=== PATIENT | female | born 2000 | race Caucasian/White ===

== ENCOUNTER 2021-07-07 23:39 | Emergency (ER) | payer OTHER ==
[2021-07-07 23:56] VITALS: O2SAT 98
[2021-07-08] MEDS ORDERED: Sodium Chloride 0.9% 1000 ML 1,000 ML IV STA (00:04)
[2021-07-08] MEDS ORDERED: Zofran 4 MG/2 ML VIAL IV ONE (00:04)
[2021-07-08] MEDS ORDERED: Zofran 4 MG/2 ML VIAL ONE (00:08)
[2021-07-08] MEDS ORDERED: Sodium Chloride 0.9% 1000 ML 1,000 ML ONE (00:08)
[2021-07-08 00:15] LABS: Absolute Neutrophil Ct (ANC) 4.55 (1.4-6.9); Basophil (Absolute #) 0.02 (0-0.4); Eosinophil % 1.2 % (0.00-5.0); Eosinophil (Absolute #) 0.08 (0-0.5); Hematocrit 35.4 % (35-47); Hemoglobin 11.3 gm/dl (12.0-16.0); Lymphocyte (Absolute #) 1.53 (1.0-4.6); Lymphocytes % 22.6 % (24.0-44.0); Mean Cell Volume 82.1 fl (78-100); Mean Corpuscular Hemoglobin 26.2 pg (26-32); Mean Corpuscular Hgb Concent. 31.9 g/dl (32-36); Mean Platelet Volume 9.6 fl (7.5-11.0); Monocytes % 8.8 % (0.0-12.0); Neutrophil % 67.1 % (36.0-66.0); Platelet Count 266 K/mm3 (150-450); Red Blood Count 4.31 M/mm3 (4.1-5.4); Red Cell Distribution Width 14.9 % (11.5-14.0); White Blood Count 6.8 K/mm3 (4.0-10.5)
[2021-07-08 00:29] LABS: ALBUMIN 4.2 g/dL (3.5-5.0); ALKALINE PHOSPHATASE 84 U/L (38-126); ANION GAP 11.9 MEQ/L (5-15); BLOOD UREA NITROGEN 9 mg/dL (7-17); CHLORIDE 106 mmol/L (98-107); Calcium 9.2 mg/dL (8.4-10.2); Carbon Dioxide 23 mmol/L (22-30); Creatinine 1 0.52 mg/dL (0.52-1.04); EST GLOMERULAR FILTRATION RATE > 60.0 ML/MIN; Glucose 95 mg/dL (74-106); Potassium 3.6 mmol/L (3.5-5.1); SGOT/AST 22 U/L (14-36); SGPT/ALT 19 U/L (0-35); SODIUM 138 mmol/L (137-145); Total Protein 7.3 g/dL (6.3-8.2)
--- NOTE | 2021-07-08 00:34 | ERPHSYRPT ---
- History of Present Illness Historian: patient Exam Limitations: no limitations Patient Subjective Stated Complaint: pt states she vomited once tonight and states it looked like she vomited up a blood clot. denies pain Triage Nursing Assessment: pt alert and oriented, answers questions approp. pt ambulatory with steady gait noted. respirations nonlabored with lungs cta. abd soft and nontender with light palpation. bowel sounds present x4. Physician History: 21 yo wf w +preg test 07/05/21 presents w N/V before arrival w a few blood clots. She denies abdominal pain/vag bleeding/vag dc/dysuria/hematuria/melena/hematochezia. Timing/Duration: today (Before arrival) Activities at Onset: rest Abdominal Pain Onset Location: other (No pain) Pain Radiation: no radiation Severity of Pain-Max: none Severity of Pain-Current: none Modifying Factors: Improves With: vomiting. Worsens With: analgesics, antacids, breathing, coughing, defecating, eating, exercise, lying down, movement, palpation, rest, urinating, position, walking Associated Symptoms: nausea, vomiting, No back, No chest pain, No diaphoresis, No diarrhea, No fever/chills, No fatigue, No headache, No heartburn, No loss of appetite, No neck pain, No rash, No shortness of breath, No syncope, No weakness Previous symptoms: no prior history Allergies/Adverse Reactions: No Known Drug Allergies Allergy (Verified 07/07/21 23:57) Hx Tetanus, Diphtheria Vaccination/Date Given: Yes Hx Influenza Vaccination/Date Given: No Hx Pneumococcal Vaccination/Date Given: No Immunizations Up to Date: Yes Travel Risk - International Travel Have you traveled outside of the country in past 3 weeks: No - Coronavirus Screening Are you exhibiting any of the following symptoms?: No Close contact with a COVID-19 positive Pt in past 14-21 Days: No - Vaccine Status Have you recieved a Covid-19 vaccination: No - Review of Systems Constitutional: No Symptoms Eyes: No Symptoms Ears, Nose, & Throat: No Symptoms Respiratory: No Symptoms Cardiac: No Symptoms Abdominal/Gastrointestinal: No Symptoms, Hematemesis Genitourinary Symptoms: No Symptoms Musculoskeletal: No Symptoms Skin: No Symptoms Neurological: No Symptoms Psychological: No Symptoms Endocrine: No Symptoms Hematologic/Lymphatic: No Symptoms Immunological/Allergic: No Symptoms - Past Medical History Other Medical History: hx of frequent kidney infections - Past Surgical History Past Surgical History: Yes Gastrointestinal: Appendectomy Musculoskeletal: Orthopedic Surgery Other Surgical History: lt wrist with hardware - Social History Smoking Status: Never smoker Exposure to second hand smoke: Yes Drug Use: none Patient Lives Alone: No Significant Family History: no pertinent family hx - Female History Hx Last Menstrual Period: 06/03/21 Hx Now: Yes Expected Date of Delivery: 03/10/22 Gestational Age: 5 weeks - Nursing Vital Signs Nursing Vital Signs: Initial Vital Signs Temperature 98.9 F 07/07/21 23:46 Pulse Rate 108 H 07/07/21 23:46 Respiratory Rate 16 07/07/21 23:46 Blood Pressure 126/87 07/07/21 23:46 O2 Sat by Pulse Oximetry 98 07/07/21 23:46 Pain Scale Pain Intensity 0 Mildly tachy - Physical Exam General Appearance: no apparent distress Eye Exam: PERRL/EOMI, eyes nml inspection Ears, Nose, Throat Exam: normal ENT inspection, TMs normal, pharynx normal, moist mucous membranes Neck Exam: normal inspection, non-tender, supple, full range of motion, No meningismus, No mass, No Brudzinski, No Kernig's Respiratory Exam: normal breath sounds, lungs clear, airway intact, No respiratory distress Cardiovascular Exam: tachycardia (Mild), capillary refill <2 sec, No murmur Gastrointestinal/Abdomen Exam: soft, normal bowel sounds, No tenderness Back Exam: normal inspection, normal range of motion, No CVA tenderness, No vertebral tenderness Extremity Exam: normal inspection, normal range of motion Neurologic Exam: alert, oriented x 3, cooperative, instructional systems design consultant II-XII nml as tested, normal mood/affect, nml cerebellar function, nml station & gait, sensation nml, No motor deficits, No sensory deficit Skin Exam: normal color, warm, dry Lymphatic Exam: No adenopathy SpO2 Interpretation: normal SpO2: 98 O2 Delivery: Room Air Ordered Tests: Medication Summary Discontinued Medications Generic Name Dose Route Start Last Admin Trade Name Freq PRN Reason Stop Dose Admin Sodium Chloride 1,000 mls @ 999 mls/hr 07/08/21 00:04 07/08/21 01:28 Sodium Chloride 0.9% 1000 Ml IV 07/08/21 01:04 Infused .Q1H1M STA Infusion Sodium Chloride Confirm 07/08/21 00:08 Sodium Chloride 0.9% 1000 Ml Administered 07/08/21 00:09 Dose 1,000 mls @ ud .ROUTE .K-MED ONE Ondansetron HCl 4 mg 07/08/21 00:04 07/08/21 00:09 Ondansetron Hcl 4 Mg/2 Ml Vial IV 07/08/21 00:05 4 mg STAT ONE Administration Ondansetron HCl Confirm 07/08/21 00:08 Ondansetron Hcl 4 Mg/2 Ml Vial Administered 07/08/21 00:09 Dose 4 mg .ROUTE .STK-MED ONE Lab/Rad Data: Laboratory Result Diagrams 07/08/21 00:12 07/08/21 00:12 Laboratory Results 07/08/21 07/08/21 07/08/21 Range/Units 00:44 00:14 00:12 WBC (4.0-10.5) K/mm3 RBC (4.1-5.4) M/mm3 Hgb (12.0-16.0) gm/dl Hct (35-47) % MCV (78-100) fl MCH (26-32) pg MCHC (32-36) g/dl RDW (11.5-14.0) % Plt Count (150-450) K/mm3 MPV (7.5-11.0) fl Gran % (36.0-66.0) % Eos # (Auto) (0-0.5) Absolute Lymphs (auto) (1.0-4.6) Absolute Monos (auto) (0.0-1.3) Lymphocytes % (24.0-44.0) % Monocytes % (0.0-12.0) % Eosinophils % (0.00-5.0) % Basophils % (0.0-0.4) % Absolute Granulocytes (1.4-6.9) Basophils # (0-0.4) Sodium 138 (137-145) mmol/L Potassium 3.6 (3.5-5.1) mmol/L Chloride 106 (98-107) mmol/L Carbon Dioxide 23 (22-30) mmol/L Anion Gap 11.9 (5-15) MEQ/L BUN 9 (7-17) mg/dL Creatinine 0.52 (0.52-1.04) mg/dL Estimated GFR > 60.0 ML/MIN Glucose 95 (74-106) mg/dL Calcium 9.2 (8.4-10.2) mg/dL Total Bilirubin 0.40 (0.2-1.3) mg/dL AST 22 (14-36) U/L ALT 19 (0-35) U/L Alkaline Phosphatase 84 (38-126) U/L Serum Total Protein 7.3 (6.3-8.2) g/dL Albumin 4.2 (3.5-5.0) g/dL Beta HCG, Quant 1285.3 mIU/ml Urine Color YELLOW (YELLOW) Urine Appearance CLEAR (CLEAR) Urine pH 7.0 (5-6) Ur Specific [place] 1.011 (1.005-1.025) Urine Protein NEGATIVE (Negative) Urine Ketones NEGATIVE (NEGATIVE) Urine Blood NEGATIVE (0-5) Farhan/ul Urine Nitrite NEGATIVE (NEGATIVE) Urine Bilirubin NEGATIVE (NEGATIVE) Urine Urobilinogen NEGATIVE (0-1) mg/dL Ur Leukocyte Esterase NEGATIVE (NEGATIVE) Urine WBC (Auto) 0-2 (0-5) /HPF Urine RBC (Auto) 0-2 (0-2) /HPF U Epithel Cells (Auto) RARE (FEW) /HPF Urine Bacteria (Auto) NONE (NEGATIVE) /HPF Urine Mucus (Auto) SLIGHT (NEGATIVE) /HPF Urine Culture Reflexed NO (NO) Urine Glucose NEGATIVE (NEGATIVE) mg/dL 07/08/21 Range/Units 00:12 WBC 6.8 (4.0-10.5) K/mm3 RBC 4.31 (4.1-5.4) M/mm3 Hgb 11.3 L (12.0-16.0) gm/dl Hct 35.4 (35-47) % MCV 82.1 (78-100) fl MCH 26.2 (26-32) pg MCHC 31.9 L (32-36) g/dl RDW 14.9 H (11.5-14.0) % Plt Count 266 (150-450) K/mm3 MPV 9.6 (7.5-11.0) fl Gran % 67.1 H (36.0-66.0) % Eos # (Auto) 0.08 (0-0.5) Absolute Lymphs (auto) 1.53 (1.0-4.6) Absolute Monos (auto) 0.60 (0.0-1.3) Lymphocytes % 22.6 L (24.0-44.0) % Monocytes % 8.8 (0.0-12.0) % Eosinophils % 1.2 (0.00-5.0) % Basophils % 0.3 (0.0-0.4) % Absolute Granulocytes 4.55 (1.4-6.9) Basophils # 0.02 (0-0.4) Sodium (137-145) mmol/L Potassium (3.5-5.1) mmol/L Chloride (98-107) mmol/L Carbon Dioxide (22-30) mmol/L Anion Gap (5-15) MEQ/L BUN (7-17) mg/dL Creatinine (0.52-1.04) mg/dL Estimated GFR ML/MIN Glucose (74-106) mg/dL Calcium (8.4-10.2) mg/dL Total Bilirubin (0.2-1.3) mg/dL AST (14-36) U/L ALT (0-35) U/L Alkaline Phosphatase (38-126) U/L Serum Total Protein (6.3-8.2) g/dL Albumin (3.5-5.0) g/dL Beta HCG, Quant mIU/ml Urine Color (YELLOW) Urine Appearance (CLEAR) Urine pH (5-6) Ur Specific [place] (1.005-1.025) Urine Protein (Negative) Urine Ketones (NEGATIVE) Urine Blood (0-5) Farhan/ul Urine Nitrite (NEGATIVE) Urine Bilirubin (NEGATIVE) Urine Urobilinogen (0-1) mg/dL Ur Leukocyte Esterase (NEGATIVE) Urine WBC (Auto) (0-5) /HPF Urine RBC (Auto) (0-2) /HPF U Epithel Cells (Auto) (FEW) /HPF Urine Bacteria (Auto) (NEGATIVE) /HPF Urine Mucus (Auto) (NEGATIVE) /HPF Urine Culture Reflexed (NO) Urine Glucose (NEGATIVE) mg/dL - Progress Progress: improved Progress Note: 07/08/21 00:38 1L NS bolus/4mg IV Zofran 07/08/21 01:15 Pt did not vomit during ER stay Counseled pt/family regarding: lab results, diagnosis, need for follow-up - Departure Departure Disposition: Home Clinical Impression: Nausea/vomiting in Condition: Stable Critical Care Time: No Referrals: DOCTOR,NO FAMILY [Primary Care Provider] - Follow up/PCP as directed Instructions: Nausea and Vomiting of (DC) Additional Instructions: Phenergan for nausea/vomiting Fluids Follow up with Dr. Choudhury Return to ER for unremitting vomiting/Vag bleeding/Increasing abdominal pain/Temperature greater than 100.5 Prescriptions: Promethazine HCl 25 mg [Phenergan 25 mg] 25 mg PO Q4-6HPRN PRN #10 tablet PRN Reason: Nausea/Vomiting
[2021-07-08 00:37] LABS: Appearance CLEAR (CLEAR); Bilirubin NEGATIVE (NEGATIVE); Blood NEGATIVE Ery/ul (0-5); Epithelial Cells RARE /HPF (FEW); Glucose NEGATIVE (NEGATIVE); Ketones NEGATIVE (NEGATIVE); Leukocyte Esterase NEGATIVE (NEGATIVE); Mucus SLIGHT /HPF (NEGATIVE); Nitrite NEGATIVE (NEGATIVE); Protein,Urine Dip NEGATIVE (Negative); RBC 0-2 /HPF (0-2); Specific Gravity 1.011 (1.005-1.025); Urobilinogen NEGATIVE mg/dL (0-1); WBC 0-2 /HPF (0-5)
[2021-07-08 01:15] VITALS: BP 112/67; PULSE 95
== END 2021-07-08 01:27 | disposition home or self-care (01) ==
LOC: ED 23:39
DX: O21.9 Vomiting of pregnancy, unspecified (principal); Z3A.01 Less than 8 weeks gestation of pregnancy
CPT/HCPCS: 36000; 36415; 80053; 81001; 84702; 85025; 96360; 96374; 99284; J2405

== ENCOUNTER 2021-09-02 13:10 | Emergency (ER) | payer OTHER ==
--- NOTE | 2021-09-02 14:58 | XRAY ---
Indication: Bleeding. Less than 14 weeks gestation. Two-dimensional transvaginal early OB ultrasound performed. Comparison: None There is a single intrauterine with mean crown-rump length measures 6.46 [place] corresponding to 12 weeks 6 days. heart rate 171 bpm. No abnormal subchorionic fluid. Left and right ovaries are sonographically unremarkable. No suspicious adnexal mass. Impression: Single viable intrauterine measuring 12 weeks 6 days. Expected date of confinement is March 11, 2022. No acute findings.
[2021-09-02 15:25] LABS: Basophil (Absolute #) 0 (0-0.4); Eosinophil % 0.8 % (0.00-5.0); Eosinophil (Absolute #) 0.05 (0-0.5); Hemoglobin 11.5 gm/dl (12.0-16.0); Lymphocyte (Absolute #) 1.29 (1.0-4.6); Lymphocytes % 19.4 % (24.0-44.0); Mean Corpuscular Hemoglobin 26.9 pg (26-32); Mean Corpuscular Hgb Concent. 32.9 g/dl (32-36); Neutrophil % 73.8 % (36.0-66.0); Platelet Count 216 K/mm3 (150-450); Red Blood Count 4.27 M/mm3 (4.1-5.4); Red Cell Distribution Width 15.6 % (11.5-14.0); White Blood Count 6.6 K/mm3 (4.0-10.5)
[2021-09-02 15:34] LABS: ALBUMIN 3.7 g/dL (3.5-5.0); ALKALINE PHOSPHATASE 64 U/L (38-126); ANION GAP 12.9 MEQ/L (5-15); BLOOD UREA NITROGEN 8 mg/dL (7-17); CHLORIDE 106 mmol/L (98-107); Calcium 9.1 mg/dL (8.4-10.2); Carbon Dioxide 22 mmol/L (22-30); Creatinine 1 0.42 mg/dL (0.52-1.04); EST GLOMERULAR FILTRATION RATE > 60.0 ML/MIN; Glucose 79 mg/dL (74-106); Potassium 3.6 mmol/L (3.5-5.1); SGOT/AST 19 U/L (14-36); SGPT/ALT 12 U/L (0-35); SODIUM 137 mmol/L (137-145); Total Protein 6.8 g/dL (6.3-8.2)
[2021-09-02 16:06] LABS: Bacteria RARE /HPF (NEGATIVE)
[2021-09-02 16:07] LABS: Appearance CLEAR (CLEAR); Bilirubin NEGATIVE (NEGATIVE); Glucose NEGATIVE (NEGATIVE); Ketones NEGATIVE (NEGATIVE); RBC MODERATE Ery/ul (0-5); Specific Gravity 1.015 (1.005-1.025); Urobilinogen 0.2 mg/dL (0-1)
[2021-09-02 16:08] LABS: Dipstick done @ ? MAIN LAB; Nitrite NEGATIVE (NEGATIVE); Protein,Urine Dip NEGATIVE (Negative); Urine Cultured Indicated? NO
--- NOTE | 2021-09-02 16:22 | ERPHSYRPT ---
- History of Present Illness Time Seen by Provider: 09/02/21 13:50 Source: patient Exam Limitations: no limitations Patient Subjective Stated Complaint: Pt is 12.4 weeks and she went to the restroom prior to coming to the ER and there was a lot of blood in the willem let when she urinated Triage Nursing Assessment: Pt brought to the ER by a family member, tachycardic, rates abdominal pain as 5/10, unable to hear FHT, 12.4 weeks gestation, pulses normal, skin n/w/d, denies any trauma, first Physician History: Patient is a 21-year-old female presents to emergency department for evaluation of vaginal bleeding in . Patient states she is currently 12.4 weeks . Patient was unable to obtain heart tones at home. Patient states prior to arrival she went to urinate and observed a clot in the toilet. Patient complaining of some pelvic cramping. Pain rated 5 out of 10. No traum a. No fever. No nausea vomiting or diaphoresis. No diarrhea. No rash. Patient otherwise healthy. Patient on vitamins. Patient voices no other complaints or concerns at this time. Timing/Duration: today Severity: moderate Modifying Factors: Improves With: nothing Associated Symptoms: denies symptoms Allergies/Adverse Reactions: No Known Drug Allergies Allergy (Verified 09/02/21 13:50) Home Medications: No Reportable Medications [No Reported Medications] 09/02/21 [History] Hx Tetanus, Diphtheria Vaccination/Date Given: Yes Hx Influenza Vaccination/Date Given: No Hx Pneumococcal Vaccination/Date Given: No Travel Risk - International Travel Have you traveled outside of the country in past 3 weeks: No - Coronavirus Screening Are you exhibiting any of the following symptoms?: No Close contact with a COVID-19 positive Pt in past 14-21 Days: No - Vaccine Status Have you recieved a Covid-19 vaccination: No - Review of Systems Constitutional: No Symptoms, No Fever, No Chills Eyes: No Symptoms Ears, Nose, & Throat: No Symptoms Respiratory: No Symptoms, No Cough, No Dyspnea Cardiac: No Symptoms, No Chest Pain, No Edema, No Syncope Abdominal/Gastrointestinal: No Symptoms, No Abdominal Pain, No Nausea, No Vom iting, No Diarrhea Genitourinary Symptoms: No Symptoms, No Dysuria Musculoskeletal: No Symptoms, No Back Pain, No Neck Pain Skin: No Symptoms, No Rash Neurological: No Symptoms, No Dizziness, No Focal Weakness, No Sensory Changes Psychological: No Symptoms Endocrine: No Symptoms Hematologic/Lymphatic: No Symptoms Immunological/Allergic: No Symptoms All Other Systems: Reviewed and Negative - Past Medical History Pertinent Past Medical History: Yes Other Medical History: hx of frequent kidney infections - Past Surgical History Past Surgical History: Yes Gastrointestinal: Appendectomy Musculoskeletal: Orthopedic Surgery Other Surgical History: lt wrist with hardware - Social History Smoking Status: Never smoker Exposure to second hand smoke: Yes Drug Use: none Patient Lives Alone: No Significant Family History: no pertinent family hx - Female History Hx Now: Yes Expected Date of Delivery: 03/12/22 - Nursing Vital Signs Nursing Vital Signs: Initial Vital Signs Temperature 99.6 F 09/02/21 13:38 Pulse Rate 103 H 09/02/21 13:38 Blood Pressure 139/85 09/02/21 13:38 O2 Sat by Pulse Oximetry 99 09/02/21 13:38 Pain Scale Pain Intensity 5 - Physical Exam General Appearance: no apparent distress, alert Eye Exam: PERRL/EOMI, eyes nml inspection Ears, Nose, Throat Exam: normal ENT inspection, TMs normal, pharynx normal, moist mucous membranes Neck Exam: normal inspection, non-tender, supple, full range of motion Respiratory Exam: normal breath sounds, lungs clear, airway intact, No respiratory distress Cardiovascular Exam: regular rate/rhythm, normal heart sounds, normal peripheral pulses Gastrointestinal/Abdomen Exam: soft, normal bowel sounds, No tenderness, No mass Pelvic Exam: normal external exam, vaginal bleeding, No adnexal tenderness, No cervical motion tenderness, No uterine tenderness Back Exam: normal inspection, normal range of motion, No CVA tenderness, No vertebral tenderness Extremity Exam: normal inspection, normal range of motion, pelvis stable Neurologic Exam: alert, oriented x 3, cooperative, normal mood/affect, nml cerebellar function, nml station & gait, sensation nml, No motor deficits Skin Exam: normal color, warm, dry, No rash Lymphatic Exam: No adenopathy SpO2 Interpretation: normal SpO2: 97 O2 Delivery: Room Air - Course Nursing assessment & vital signs reviewed: Yes - Radiology Ultrasound Exam OB Ultrasound: tele radiology report ( heart rate of 171. Live IUP., 12 weeks 6 days) Ordered Tests: Active Orders 24 hr Category Date Time Status IV Insertion STAT Care 09/02/21 14:43 Active OB TRANSVAGINAL [US] Stat Exams 09/02/21 14:47 Completed CBC W DIFF Stat Lab 09/02/21 15:15 Completed CMP Stat Lab 09/02/21 15:15 Completed HCG, Quantitative (Inhouse) Stat Lab 09/02/21 15:15 Completed UA W/RFX CULTURE Stat Lab 09/02/21 Completed Wet Prep Stat Lab 09/02/21 14:44 Ordered Lab/Rad Data: Laboratory Result Diagrams 09/02/21 15:15 09/02/21 15:15 Laboratory Results 09/02/21 09/02/21 09/02/21 Range/Units Unknown 15:15 15:15 WBC (4.0-10.5) K/mm3 RBC (4.1-5.4) M/mm3 Hgb (12.0-16.0) gm/dl Hct (35-47) % MCV (78-100) fl MCH (26-32) pg MCHC (32-36) g/dl RDW (11.5-14.0) % Plt Count (150-450) K/mm3 MPV (7.5-11.0) fl Gran % (36.0-66.0) % Eos # (Auto) (0-0.5) Absolute Lymphs (auto) (1.0-4.6) Absolute Monos (auto) (0.0-1.3) Lymphocytes % (24.0-44.0) % Monocytes % (0.0-12.0) % Eosinophils % (0.00-5.0) % Basophils % (0.0-0.4) % Absolute Granulocytes (1.4-6.9) Basophils # (0-0.4) Sodium (137-145) mmol/L Potassium (3.5-5.1) mmol/L Chloride (98-107) mmol/L Carbon Dioxide (22-30) mmol/L Anion Gap (5-15) MEQ/L BUN (7-17) mg/dL Creatinine (0.52-1.04) mg/dL Estimated GFR ML/MIN Glucose (74-106) mg/dL Calcium (8.4-10.2) mg/dL Total Bilirubin (0.2-1.3) mg/dL AST (14-36) U/L ALT (0-35) U/L Alkaline Phosphatase (38-126) U/L Serum Total Protein (6.3-8.2) g/dL Albumin (3.5-5.0) g/dL Beta HCG, Quant 23013 mIU/ml Urinalys Dipstick Clnc MAIN LAB Urine Color YELLOW (YELLOW) Urine Appearance CLEAR (CLEAR) Urine pH 7.0 (5-6) Ur Specific [place] 1.015 (1.005-1.025) POC Urine Protein Conf NEGATIVE (Negative) Urine Ketones NEGATIVE (NEGATIVE) Urine Nitrite NEGATIVE (NEGATIVE) Urine Bilirubin NEGATIVE (NEGATIVE) Urine Urobilinogen 0.2 (0-1) mg/dL Urine Leukocytes TRACE (NEGATIVE) Urine WBC (Auto) NONE (0-5) /HPF Urine RBC (Auto) NONE (0-2) /HPF U Epithel Cells (Auto) NONE (FEW) /HPF Urine Bacteria (Auto) RARE (NEGATIVE) /HPF Urine RBC MODERATE (0-5) Farhan/ul Ur Culture Indicated? NO Urine Glucose NEGATIVE (NEGATIVE) mg/dL Chlamydia DNA Probe (NEGATIVE) N.gonorrhoeae DNA Probe (NEGATIVE) ABO Group A Rh Factor POSITIVE Antibody Screen NEGATIVE (NEGATIVE) 09/02/21 09/02/21 09/02/21 Range/Units 15:15 15:15 15:12 WBC 6.6 (4.0-10.5) K/mm3 RBC 4.27 (4.1-5.4) M/mm3 Hgb 11.5 L (12.0-16.0) gm/dl Hct 35.0 (35-47) % MCV 82.0 (78-100) fl MCH 26.9 (26-32) pg MCHC 32.9 (32-36) g/dl RDW 15.6 H (11.5-14.0) % Plt Count 216 (150-450) K/mm3 MPV 10.0 (7.5-11.0) fl Gran % 73.8 H (36.0-66.0) % Eos # (Auto) 0.05 (0-0.5) Absolute Lymphs (auto) 1.29 (1.0-4.6) Absolute Monos (auto) 0.40 (0.0-1.3) Lymphocytes % 19.4 L (24.0-44.0) % Monocytes % 6.0 (0.0-12.0) % Eosinophils % 0.8 (0.00-5.0) % Basophils % 0.0 (0.0-0.4) % Absolute Granulocytes 4.90 (1.4-6.9) Basophils # 0 (0-0.4) Sodium 137 (137-145) mmol/L Potassium 3.6 (3.5-5.1) mmol/L Chloride 106 (98-107) mmol/L Carbon Dioxide 22 (22-30) mmol/L Anion Gap 12.9 (5-15) MEQ/L BUN 8 (7-17) mg/dL Creatinine 0.42 L (0.52-1.04) mg/dL Estimated GFR > 60.0 ML/MIN Glucose 79 (74-106) mg/dL Calcium 9.1 (8.4-10.2) mg/dL Total Bilirubin 0.30 (0.2-1.3) mg/dL AST 19 (14-36) U/L ALT 12 (0-35) U/L Alkaline Phosphatase 64 (38-126) U/L Serum Total Protein 6.8 (6.3-8.2) g/dL Albumin 3.7 (3.5-5.0) g/dL Beta HCG, Quant mIU/ml Urinalys Dipstick Clnc Urine Color (YELLOW) Urine Appearance (CLEAR) Urine pH (5-6) Ur Specific [place] (1.005-1.025) POC Urine Protein Conf (Negative) Urine Ketones (NEGATIVE) Urine Nitrite (NEGATIVE) Urine Bilirubin (NEGATIVE) Urine Urobilinogen (0-1) mg/dL Urine Leukocytes (NEGATIVE) Urine WBC (Auto) (0-5) /HPF Urine RBC (Auto) (0-2) /HPF U Epithel Cells (Auto) (FEW) /HPF Urine Bacteria (Auto) (NEGATIVE) /HPF Urine RBC (0-5) Farhan/ul Ur Culture Indicated? Urine Glucose (NEGATIVE) mg/dL Chlamydia DNA Probe DETECTED (NEGATIVE) N.gonorrhoeae DNA Probe NOT DETECTED (NEGATIVE) ABO Group Rh Factor Antibody Screen (NEGATIVE) - Progress Progress: improved Progress Note: Pelvic exam reveals a closed cervical os. There is mucousy bloody discharge. No active bleeding. Chlamydia positive. Patient states she was recently treated for chlamydia. Patient states she was retested and it was negative now that she is appears to be reinfected. Case discussed with patient's [employer] physician who advises 1 g of azithromycin and discharged home. No indication for further work-up. Will discharge home at this time. She agrees to follow-up with within 48 hours for evaluation. Portions of this note were created with voice recognition technology. There may be grammatical, spelling, punctuation or sound alike errors 09/02/21 18:35 UA negative. Patient is Rh+. No indication for RhoGAM at this time. Patient's beta quant appears to be rising as expected. 09/02/21 18:[address] Jasmina Will see patient in: office Counseled pt/family regarding: lab results, diagnosis, need for follow-up, rad results - Departure Departure Disposition: Home Clinical Impression: Chlamydia, Threatened , Vaginal bleeding affecting early Condition: Stable Critical Care Time: No Referrals: DOCTOR,NO FAMILY [Primary Care Provider] - Follow up/PCP as directed Additional Instructions: Discharge/Care Plan ROBERTAZEB PETERSEN was seen on 09/02/21 in the Emergency Room. The patient was counseled regarding Diagnosis,Lab results, Imaging studies, need for follow up and when to return to the Emergency Room. Prescriptions given: Discharge Note I have spoken with the patient and/or caregivers. I have explained the patient's condition, diagnosis and treatment plan based on the information available to me at this time. I have answered the patient's and/or caregiver's questions and addressed any concerns. The patient and/or caregivers have as good understanding of the patient's diagnosis, condition and treatment plan as can be expected at this point. The vital signs have been stable. The patient's condition is stable and appropriate for discharge from the emergency department. The patient will pursue further outpatient evaluation with the primary care physician or other designated or consulting physician as outlined in the discharge instructions. The patient and/or caregivers are agreeable to this plan of care and follow-up instructions have been explained in detail. The patient and/or caregivers have received these instruction. The patient/and or caregivers are aware that any significant change in condition or worsening of symptoms should prompt an immediate return to this or the closest emergency department or call 911.
[2021-09-02 16:39] LABS: ABO TYPING A; Antibody Screen NEGATIVE (NEGATIVE); RH TYPING POSITIVE
[2021-09-02 16:51] VITALS: BP 115/63; PULSE 74
[2021-09-02 17:12] VITALS: O2SAT 97
[2021-09-02 17:33] LABS: CHLAMYDIA DNA DETECTED (NEGATIVE); GC DNA Probe NOT DETECTED (NEGATIVE)
[2021-09-02] MEDS ORDERED: Zithromax 250 MG TABLET PO ONE (18:34)
[2021-09-02] MEDS ORDERED: Zithromax 250 MG TABLET ONE (18:36)
[2021-09-02 18:48] LABS: Bacteria Few; Clue Cells None Seen; Red Blood Cells Many; Trichomonas None Seen; White Blood Cells Few; Yeast None Seen
== END 2021-09-02 18:39 | disposition home or self-care (01) ==
LOC: ED 13:10
DX: O20.0 Threatened abortion (principal); Z3A.12 12 weeks gestation of pregnancy; O98.811 Other maternal infectious and parasitic diseases complicating pregnancy, first trimester; A74.9 Chlamydial infection, unspecified
CPT/HCPCS: 36415; 76817; 80053; 81015; 84702; 85025; 86850; 86900; 86901; 87210; 87491; 87591; 99284; A9270-GY

== ENCOUNTER 2021-10-08 12:30 | Emergency (ER) | payer MEDICAID, OTHER ==
--- NOTE | 2021-10-08 12:38 | ERPHSYRPT ---
- History of Present Illness Time Seen by Provider: 10/08/21 12:38 Source: patient Exam Limitations: no limitations Physician History: This is a 21-year-old white female patient of Dr. Choudhury (who is out of the office today) and who presents with dizziness for few days. He has been intermittent and is now more constant and worse today. Patient was treated for chlamydial infection approximately 1 week ago. She is approximately 18 weeks . She is not nauseated. She is had no fever. She has had no new vomiting. She has no abdominal pain. She has no cough. She has not short of breath. She did not have any traumatic injury to her head. Timing/Duration: day(s) (A few days), intermittent, worse Associated Symptoms: denies symptoms Allergies/Adverse Reactions: No Known Drug Allergies Allergy (Verified 10/08/21 13:01) Home Medications: Pnv No.95/Ferrous Fum/Folic AC [ Caplet] 1 dose PO DAILY 10/08/21 [History] Hx Tetanus, Diphtheria Vaccination/Date Given: Yes Hx Influenza Vaccination/Date Given: No Hx Pneumococcal Vaccination/Date Given: No Travel Risk - International Travel Have you traveled outside of the country in past 3 weeks: No - Coronavirus Screening Are you exhibiting any of the following symptoms?: No Close contact with a COVID-19 positive Pt in past 14-21 Days: No - Vaccine Status Have you recieved a Covid-19 vaccination: No - Review of Systems Constitutional: No Symptoms Eyes: No Symptoms Ears, Nose, & Throat: No Symptoms Respiratory: No Symptoms Cardiac: No Symptoms Abdominal/Gastrointestinal: No Symptoms Genitourinary Symptoms: No Symptoms Musculoskeletal: No Symptoms Skin: No Symptoms Neurological: Dizziness Psychological: No Symptoms Endocrine: No Symptoms Hematologic/Lymphatic: No Symptoms Immunological/Allergic: No Symptoms All Other Systems: Reviewed and Negative - Past Medical History Pertinent Past Medical History: Yes Other Medical History: hx of frequent kidney infections - Past Surgical History Past Surgical History: Yes Gastrointestinal: Appendectomy Musculoskeletal: Orthopedic Surgery Other Surgical History: lt wrist with hardware - Social History Smoking Status: Never smoker Exposure to second hand smoke: Yes Drug Use: none Patient Lives Alone: No Significant Family History: no pertinent family hx - Nursing Vital Signs Nursing Vital Signs: Initial Vital Signs Temperature 98 F 10/08/21 12:51 Pulse Rate 110 H 10/08/21 12:51 Respiratory Rate 20 10/08/21 12:51 Blood Pressure 139/88 10/08/21 12:51 O2 Sat by Pulse Oximetry 97 10/08/21 12:51 Pain Scale Pain Intensity 2 - Physical Exam General Appearance: no apparent distress, alert, anxiety Eye Exam: PERRL/EOMI, eyes nml inspection Ears, Nose, Throat Exam: normal ENT inspection, moist mucous membranes Neck Exam: normal inspection, non-tender, supple, full range of motion Respiratory Exam: normal breath sounds, lungs clear, airway intact, No chest tenderness, No respiratory distress Cardiovascular Exam: regular rate/rhythm, normal heart sounds, normal peripheral pulses Gastrointestinal/Abdomen Exam: soft, normal bowel sounds, No tenderness, No g uarding, No rebound Pelvic Exam: not done Rectal Exam: not done Back Exam: normal inspection, normal range of motion, No CVA tenderness, No vertebral tenderness Extremity Exam: normal inspection, normal range of motion, pelvis stable Neurologic Exam: alert, oriented x 3, cooperative, predatory animal trapper II-XII nml as tested, normal mood/affect, nml cerebellar function, nml station & gait, sensation nml Skin Exam: normal color, warm, dry Lymphatic Exam: No adenopathy SpO2 Interpretation: normal O2 Delivery: Room Air - Course Nursing assessment & vital signs reviewed: Yes EKG Interpreted by Me: RATE ([id number]), Sinus Tach, NORMAL AXIS (Mild), NORMAL INTERVALS, NORMAL QRS, NORMAL ST-T, Other (No acute ischemic changes on today's EKG.) Ordered Tests: Active Orders 24 hr Category Date Time Status EKG-ER Only STAT Care 10/08/21 13:02 Active IV Insertion STAT Care 10/08/21 13:02 Active CBC W DIFF Stat Lab 10/08/21 13:22 Completed CMP Stat Lab 10/08/21 13:22 Completed UA W/RFX CULTURE Stat Lab 10/08/21 13:10 Completed Medication Summary Discontinued Medications Generic Name Dose Route Start Last Admin Trade Name Freq PRN Reason Stop Dose Admin Sodium Chloride 1,000 mls @ 999 mls/hr 10/08/21 13:02 10/08/21 14:11 Sodium Chloride 0.9% 1000 Ml IV 10/08/21 14:02 Infused .Q1H1M STA Infusion Sodium Chloride Confirm 10/08/21 13:10 Sodium Chloride 0.9% 1000 Ml Administered 10/08/21 13:11 Dose 1,000 mls @ .ROUTE .[facility] Lab/Rad Data: Laboratory Result Diagrams 10/08/21 13:22 10/08/21 13:22 Laboratory Results 10/08/21 10/08/21 10/08/21 Range/Units 13:22 13:22 13:10 WBC 6.0 (4.0-10.5) x10^3/uL RBC 4.37 (4.1-5.4) x10^6/uL Hgb 12.0 (12.0-16.0) g/dL Hct 35.4 (35-47) % MCV 81.0 (78-100) fL MCH 27.5 (26-32) pg MCHC 33.9 (32-36) g/dL RDW 15.0 H (11.5-14.0) % Plt Count 233 (150-450) x10^3/uL MPV 10.3 (7.5-11.0) fL Gran % 73.8 H (36.0-66.0) % Immature Gran % (Auto) 0.3 (0.00-0.4) % Nucleat RBC Rel Count 0.0 (0.00-0.1) % Eos # (Auto) 0.04 (0-0.5) x10^3/uL Immature Gran # (Auto) 0.02 (0.00-0.03) x10^3u/L Absolute Lymphs (auto) 1.17 (1.0-4.6) x10^3/uL Absolute Monos (auto) 0.33 (0.0-1.3) x10^3/uL Absolute Nucleated RBC 0.00 (0.00-0.01) x10^3u/L Lymphocytes % 19.5 L (24.0-44.0) % Monocytes % 5.5 (0.0-12.0) % Eosinophils % 0.7 (0.00-5.0) % Basophils % 0.2 (0.0-0.4) % Absolute Granulocytes 4.42 (1.4-6.9) x10^3/uL Basophils # 0.01 (0-0.4) x10^3/uL Sodium 137 (137-145) mmol/L Potassium 3.4 L (3.5-5.1) mmol/L Chloride 106 (98-107) mmol/L Carbon Dioxide 21 L (22-30) mmol/L Anion Gap 13.4 (5-15) MEQ/L BUN 7 (7-17) mg/dL Creatinine 0.41 L (0.52-1.04) mg/dL Estimated GFR > 60.0 ML/MIN Glucose 96 (74-106) mg/dL Calcium 9.4 (8.4-10.2) mg/dL Total Bilirubin 0.30 (0.2-1.3) mg/dL AST 23 (14-36) U/L ALT 17 (0-35) U/L Alkaline Phosphatase 73 (38-126) U/L Serum Total Protein 7.6 (6.3-8.2) g/dL Albumin 4.0 (3.5-5.0) g/dL Urinalys Dipstick Clnc Urine Color (YELLOW) Urine Appearance (CLEAR) Urine pH (5-6) Ur Specific Centre (1.005-1.025) POC Urine Protein Conf (Negative) Urine Ketones (NEGATIVE) Urine Nitrite (NEGATIVE) Urine Bilirubin (NEGATIVE) Urine Urobilinogen (0-1) mg/dL Urine Leukocytes (NEGATIVE) Urine WBC (Auto) (0-5) /HPF Urine RBC (Auto) (0-2) /HPF U Epithel Cells (Auto) (FEW) /HPF Urine Bacteria (Auto) (NEGATIVE) /HPF Urine RBC (0-5) Farhan/ul Urine Mucus (Auto) (NEGATIVE) /HPF Ur Culture Indicated? Urine Glucose (NEGATIVE) mg/dL Chlamydia DNA Probe NOT DETECTED (NEGATIVE) N.gonorrhoeae DNA Probe NOT DETECTED (NEGATIVE) 10/08/21 Range/Units 13:10 WBC (4.0-10.5) x10^3/uL RBC (4.1-5.4) x10^6/uL Hgb (12.0-16.0) g/dL Hct (35-47) % MCV (78-100) fL MCH (26-32) pg MCHC (32-36) g/dL RDW (11.5-14.0) % Plt Count (150-450) x10^3/uL MPV (7.5-11.0) fL Gran % (36.0-66.0) % Immature Gran % (Auto) (0.00-0.4) % Nucleat RBC Rel Count (0.00-0.1) % Eos # (Auto) (0-0.5) x10^3/uL Immature Gran # (Auto) (0.00-0.03) x10^3u/L Absolute Lymphs (auto) (1.0-4.6) x10^3/uL Absolute Monos (auto) (0.0-1.3) x10^3/uL Absolute Nucleated RBC (0.00-0.01) x10^3u/L Lymphocytes % (24.0-44.0) % Monocytes % (0.0-12.0) % Eosinophils % (0.00-5.0) % Basophils % (0.0-0.4) % Absolute Granulocytes (1.4-6.9) x10^3/uL Basophils # (0-0.4) x10^3/uL Sodium (137-145) mmol/L Potassium (3.5-5.1) mmol/L Chloride (98-107) mmol/L Carbon Dioxide (22-30) mmol/L Anion Gap (5-15) MEQ/L BUN (7-17) mg/dL Creatinine (0.52-1.04) mg/dL Estimated GFR ML/MIN Glucose (74-106) mg/dL Calcium (8.4-10.2) mg/dL Total Bilirubin (0.2-1.3) mg/dL AST (14-36) U/L ALT (0-35) U/L Alkaline Phosphatase (38-126) U/L Serum Total Protein (6.3-8.2) g/dL Albumin (3.5-5.0) g/dL Urinalys Dipstick Clnc MAIN LAB Urine Color YELLOW (YELLOW) Urine Appearance CLEAR (CLEAR) Urine pH 7.5 (5-6) Ur Specific Centre 1.020 (1.005-1.025) POC Urine Protein Conf NEGATIVE (Negative) Urine Ketones NEGATIVE (NEGATIVE) Urine Nitrite NEGATIVE (NEGATIVE) Urine Bilirubin NEGATIVE (NEGATIVE) Urine Urobilinogen 0.2 (0-1) mg/dL Urine Leukocytes NEGATIVE (NEGATIVE) Urine WBC (Auto) 6-10 (0-5) /HPF Urine RBC (Auto) NONE (0-2) /HPF U Epithel Cells (Auto) RARE (FEW) /HPF Urine Bacteria (Auto) NONE (NEGATIVE) /HPF Urine RBC TRACE-INTACT (0-5) Farhan/ul Urine Mucus (Auto) SLIGHT (NEGATIVE) /HPF Ur Culture Indicated? NO Urine Glucose NEGATIVE (NEGATIVE) mg/dL Chlamydia DNA Probe (NEGATIVE) N.gonorrhoeae DNA Probe (NEGATIVE) - Progress Progress: improved Progress Note: 10/08/21 15:14 Patient states she is feeling much better. She does not have a headache any longer. She does not feel dizzy. Counseled pt/family regarding: lab results, diagnosis, need for follow-up - Departure Departure Disposition: Home Clinical Impression: Dizziness, Condition: Stable Critical Care Time: No Referrals: DOCTOR,NO FAMILY [Primary Care Provider] - Follow up/PCP as directed Additional Instructions: Drink plenty of fluids. Use Tylenol for pain control. Return to the emergency department if symptoms worsen. Follow-up with your strategic client executive and primary care provider next week for further evaluation and management. Forms: Work/School Release Form
[2021-10-08] MEDS ORDERED: Sodium Chloride 0.9% 1000 ML 1,000 ML IV STA (13:02)
[2021-10-08] MEDS ORDERED: Sodium Chloride 0.9% 1000 ML 1,000 ML ONE (13:10)
[2021-10-08 13:24] LABS: Absolute Neutrophil Ct (ANC) 4.42 x10^3/uL (1.4-6.9); Basophil (Absolute #) 0.01 x10^3/uL (0-0.4); Eosinophil % 0.7 % (0.00-5.0); Eosinophil (Absolute #) 0.04 x10^3/uL (0-0.5); Hematocrit 35.4 % (35-47); Lymphocyte (Absolute #) 1.17 x10^3/uL (1.0-4.6); Lymphocytes % 19.5 % (24.0-44.0); Mean Corpuscular Hemoglobin 27.5 pg (26-32); Mean Corpuscular Hgb Concent. 33.9 g/dL (32-36); Mean Platelet Volume 10.3 fL (7.5-11.0); Monocyte (Absolute #) 0.33 x10^3/uL (0.0-1.3); Monocytes % 5.5 % (0.0-12.0); Neutrophil % 73.8 % (36.0-66.0); Platelet Count 233 x10^3/uL (150-450); Red Blood Count 4.37 x10^6/uL (4.1-5.4)
[2021-10-08 13:39] LABS: ALKALINE PHOSPHATASE 73 U/L (38-126); ANION GAP 13.4 MEQ/L (5-15); BLOOD UREA NITROGEN 7 mg/dL (7-17); CHLORIDE 106 mmol/L (98-107); Calcium 9.4 mg/dL (8.4-10.2); Carbon Dioxide 21 mmol/L (22-30); Creatinine 1 0.41 mg/dL (0.52-1.04); EST GLOMERULAR FILTRATION RATE > 60.0 ML/MIN; Glucose 96 mg/dL (74-106); Potassium 3.4 mmol/L (3.5-5.1); SGOT/AST 23 U/L (14-36); SGPT/ALT 17 U/L (0-35); SODIUM 137 mmol/L (137-145); Total Protein 7.6 g/dL (6.3-8.2)
[2021-10-08 13:57] LABS: Epithelial Cells RARE /HPF (FEW); Mucus SLIGHT /HPF (NEGATIVE)
[2021-10-08 13:59] LABS: Appearance CLEAR (CLEAR); Glucose NEGATIVE (NEGATIVE)
[2021-10-08 14:00] LABS: Bilirubin NEGATIVE (NEGATIVE); Dipstick done @ ? MAIN LAB; Ketones NEGATIVE (NEGATIVE); Nitrite NEGATIVE (NEGATIVE); Ph 7.5 (5-6); Protein,Urine Dip NEGATIVE (Negative); RBC TRACE-INTACT Ery/ul (0-5); Urine Cultured Indicated? NO; Urobilinogen 0.2 mg/dL (0-1)
[2021-10-08 15:23] LABS: CHLAMYDIA DNA NOT DETECTED (NEGATIVE); GC DNA Probe NOT DETECTED (NEGATIVE)
[2021-10-08 15:24] VITALS: O2SAT 98
[2021-10-08 15:58] VITALS: BP 117/71; PULSE 84
== END 2021-10-08 15:59 | disposition home or self-care (01) ==
LOC: ED 12:30
DX: R42 Dizziness and giddiness (principal); Z33.1 Pregnant state, incidental; Z28.310 Unvaccinated for COVID-19
CPT/HCPCS: 36000; 36415; 80053; 81015; 85025; 87491; 87591; 93005; 96360; 99284

== ENCOUNTER 2021-12-03 14:29 | Observation (INO) | payer OTHER ==
[2021-12-03 14:58] VITALS: O2SAT 98
[2021-12-03 15:31] LABS: Amourphous Crystal FEW /HPF (NEGATIVE); Bacteria FEW /HPF (NEGATIVE); Epithelial Cells RARE /HPF (FEW)
[2021-12-03 15:34] LABS: Appearance CLEAR (CLEAR); Bilirubin NEGATIVE (NEGATIVE); Dipstick done @ ? MAIN LAB; Glucose NEGATIVE (NEGATIVE); Ketones NEGATIVE (NEGATIVE); Nitrite NEGATIVE (NEGATIVE); Ph 7.5 (5-6); Protein,Urine Dip NEGATIVE (Negative); RBC NEGATIVE Ery/ul (0-5); Urobilinogen 0.2 mg/dL (0-1)
[2021-12-03 15:35] LABS: Urine Cultured Indicated? NO
[2021-12-03] MEDS ORDERED: Lactated Ringers 1,000 ML IV ONE (16:30)
--- NOTE | 2021-12-03 17:14 | XRAY ---
Exam: OB limited ultrasound from 12/03/2021. Comparison: OB ultrasound greater than 14 weeks from 10/22/2021. Indication: Check cervical canal length. Findings: The heart rate measured 144 bpm. The fetus is in the cephalic position. Maternal cervical canal length on transvaginal images measures 5.4 cm. The maternal cervical canal is closed. Impression: 1. Maternal cervical canal length measures 5.4 cm which is normal. It appears closed.
[2021-12-03] MEDS ORDERED: BRETHINE 1 MG/ML SQ ONE (17:50)
[2021-12-03] MEDS ORDERED: BRETHINE 1 MG/ML ONE (17:54)
[2021-12-03 18:50] VITALS: BP 121/79; PULSE 81
== END 2021-12-03 20:10 | disposition home or self-care (01) ==
LOC: OB 14:29
PROVIDERS: ADMIT Obstetrics & Gynecology; ATTEND Obstetrics & Gynecology
DX: Z34.02 Encounter for supervision of normal first pregnancy, second trimester (principal); Z3A.25 25 weeks gestation of pregnancy
CPT/HCPCS: 76815; 81015; 96372; G0378

== ENCOUNTER 2022-02-28 10:07 | Observation (INO) | payer OTHER ==
[2022-02-28 11:06] LABS: Mucus SLIGHT /HPF (NEGATIVE); WBC 0-2 /HPF (0-5)
[2022-02-28 11:09] LABS: Appearance CLEAR (CLEAR); Bilirubin NEGATIVE (NEGATIVE); Dipstick done @ ? MAIN LAB; Glucose NEGATIVE (NEGATIVE); Ketones NEGATIVE (NEGATIVE); Nitrite NEGATIVE (NEGATIVE); Protein,Urine Dip NEGATIVE (Negative); RBC NEGATIVE Ery/ul (0-5); Urobilinogen 0.2 mg/dL (0-1)
[2022-02-28 11:12] LABS: Bacteria FEW /HPF (NEGATIVE); Urine Cultured Indicated? NO
== END 2022-02-28 10:49 | disposition still patient (30) ==
LOC: OB 10:07
PROVIDERS: ADMIT Obstetrics & Gynecology; ATTEND Obstetrics & Gynecology
DX: Z34.03 Encounter for supervision of normal first pregnancy, third trimester (principal); Z3A.38 38 weeks gestation of pregnancy
CPT/HCPCS: 81015; G0378

== ENCOUNTER 2022-02-28 10:46 | Emergency (ER) | payer OTHER ==
[2022-02-28] MEDS ORDERED: Sodium Chloride 0.9% 1000 ML 1,000 ML IV STA ×2 (11:29→12:33)
[2022-02-28] MEDS ORDERED: Sodium Chloride 0.9% 1000 ML 1,000 ML ONE ×2 (11:35→12:31)
[2022-02-28 11:40] LABS: Absolute Neutrophil Ct (ANC) 5.03 x10^3/uL (1.4-6.9); Basophil (Absolute #) 0.01 x10^3/uL (0-0.4); Eosinophil % 0.6 % (0.00-5.0); Eosinophil (Absolute #) 0.04 x10^3/uL (0-0.5); Hematocrit 30.1 % (35-47); Hemoglobin 9.1 g/dL (12.0-16.0); Lymphocyte (Absolute #) 1.02 x10^3/uL (1.0-4.6); Lymphocytes % 15.3 % (24.0-44.0); Mean Cell Volume 79.4 fL (78-100); Mean Corpuscular Hgb Concent. 30.2 g/dL (32-36); Mean Platelet Volume 11.6 fL (7.5-11.0); Monocyte (Absolute #) 0.54 x10^3/uL (0.0-1.3); Monocytes % 8.1 % (0.0-12.0); Neutrophil % 75.5 % (36.0-66.0); Platelet Count 195 x10^3/uL (150-450); Red Blood Count 3.79 x10^6/uL (4.1-5.4); Red Cell Distribution Width 16.1 % (11.5-14.0); White Blood Count 6.7 x10^3/uL (4.0-10.5)
[2022-02-28 11:54] LABS: ALBUMIN 3.5 g/dL (3.5-5.0); ALKALINE PHOSPHATASE 170 U/L (38-126); AMYLASE 64 U/L (30-110); ANION GAP 9.2 MEQ/L (5-15); BLOOD UREA NITROGEN 7 mg/dL (7-17); CHLORIDE 108 mmol/L (98-107); Calcium 8.7 mg/dL (8.4-10.2); Carbon Dioxide 21 mmol/L (22-30); Creatinine 1 0.35 mg/dL (0.52-1.04); EST GLOMERULAR FILTRATION RATE > 60.0 ML/MIN; Glucose 87 mg/dL (74-106); LIPASE 37 U/L (23-300); MAGNESIUM 1.8 mg/dL (1.6-2.3); NT PRO BNP 49.1 pg/mL (0-450); Potassium 3.9 mmol/L (3.5-5.1); SGOT/AST 19 U/L (14-36); SGPT/ALT 12 U/L (0-35); SODIUM 135 mmol/L (137-145)
--- NOTE | 2022-02-28 13:44 | ERPHSYRPT ---
- History of Present Illness Time Seen by Provider: 02/28/22 11:05 Source: patient Patient Subjective Stated Complaint: PT SENT DOWN FROM OB TO BE SEEN FOR HER FAST HEART RATE, SHE WAS SEEN IN OB FOR POSSIBLE LABOR, OB NURSE STATES SHE IS NOT IN ACTIVE LABOR,PT STATES SHE IS HAVING CONTRACTIONS. Triage Nursing Assessment: PT ALERT, RESP EASY, SKIN W/D/P, ABD ROUNDED, NO VAGINAL BLEEDING, CHEST CLEAR, SLIGHT EDEMA NOT FEET Physician History: Patient is a 21-year-old 1 para 0 at 38 weeks plus who presents with palpitations and a heart rate reported to us from OB nurse as 130/min she has also had some random contractions. She denies any shortness of breath she denies any chest pain. Timing/Duration: today Activities at Onset: none Quality: cramping (Abdominal) Nitro Today/Relief: no nitro taken today Aspirin Treatment Today: no aspirin today Associated Symptoms: denies symptoms Prior Chest Pain/Cardiac Workup: no prior chest pain, no prior cardiac workup Allergies/Adverse Reactions: No Known Drug Allergies Allergy (Verified 02/28/22 10:56) Home Medications: Pnv No.95/Ferrous Fum/Folic AC [ Caplet] 1 dose PO DAILY 10/08/21 [History] Sertraline HCl [Zoloft] 25 mg PO DAILY 02/28/22 [History] Valacyclovir HCl [Valtrex] 500 mg PO DAILY 02/28/22 [History] Hx Tetanus, Diphtheria Vaccination/Date Given: No Hx Influenza Vaccination/Date Given: No Hx Pneumococcal Vaccination/Date Given: No Immunizations Up to Date: Yes Travel Risk - International Travel Have you traveled outside of the country in past 3 weeks: No - Coronavirus Screening Are you exhibiting any of the following symptoms?: No Close contact with a COVID-19 positive Pt in past 14-21 Days: No - Vaccine Status Have you recieved a Covid-19 vaccination: No - Review of Systems Constitutional: No Fever, No Chills Eyes: No Symptoms Ears, Nose, & Throat: No Symptoms Respiratory: No Cough, No Dyspnea Cardiac: Palpitations, No Chest Pain, No Edema, No Syncope Abdominal/Gastrointestinal: No Abdominal Pain, No Nausea, No Vomiting, No Diarrhea Genitourinary Symptoms: No Dysuria Musculoskeletal: No Back Pain, No Neck Pain Skin: No Rash Neurological: No Dizziness, No Focal Weakness, No Sensory Changes Psychological: No Symptoms Endocrine: No Symptoms All Other Systems: Reviewed and Negative - Past Medical History Pertinent Past Medical History: Yes Neurological History: Migraines Psycho-Social History: Anxiety, Depression Other Medical History: ANEMIA WITH - Past Surgical History Past Surgical History: Yes Gastrointestinal: Appendectomy Musculoskeletal: Orthopedic Surgery Other Surgical History: lt wrist with hardware - Social History Smoking Status: Never smoker Exposure to second hand smoke: No Drug Use: none Patient Lives Alone: No Significant Family History: no pertinent family hx - Female History Hx Last Menstrual Period: 06/06/2021 Hx Now: Yes Expected Date of Delivery: 03/12/22 - Nursing Vital Signs Nursing Vital Signs: Initial Vital Signs Pulse Rate 106 H 02/28/22 10:53 Respiratory Rate 24 02/28/22 10:53 Blood Pressure 114/80 02/28/22 10:53 O2 Sat by Pulse Oximetry 97 02/28/22 10:53 Pain Scale Pain Intensity 3 - Physical Exam General Appearance: mild distress, alert Eye Exam: PERRL/EOMI, eyes nml inspection Ears, Nose, Throat Exam: normal ENT inspection, moist mucous membranes Neck Exam: normal inspection, non-tender, supple Respiratory Exam: normal breath sounds, lungs clear, No respiratory distress Cardiovascular Exam: regular rate/rhythm, normal heart sounds, No edema Gastrointestinal/Abdomen Exam: soft, No tenderness, No mass Back Exam: normal inspection, No CVA tenderness, No vertebral tenderness Extremity Exam: normal inspection, normal range of motion Neurologic Exam: alert, oriented x 3, cooperative, normal mood/affect, nml cerebellar function, sensation nml, No motor deficits Skin Exam: normal color, warm, dry Lymphatic Exam: No adenopathy SpO2 Interpretation: normal SpO2: 97 O2 Delivery: Room Air - Course Nursing assessment & vital signs reviewed: Yes EKG Interpreted by Me: RATE ([id number]), Sinus Tach, NORMAL AXIS, NORMAL INTERVALS, NORMAL QRS, Non-specific ST Changes Ordered Tests: Active Orders 24 hr Category Date Time Status EKG-ER Only STAT Care 02/28/22 11:29 Active AMYLASE Stat Lab 02/28/22 11:20 Completed CBC W DIFF Stat Lab 02/28/22 11:20 Completed CMP Stat Lab 02/28/22 11:20 Completed LIPASE Stat Lab 02/28/22 11:20 Completed Lactic Acid Stat Lab 02/28/22 11:36 Completed MAGNESIUM Stat Lab 02/28/22 11:20 Completed NT PRO BNP Stat Lab 02/28/22 11:20 Completed TROPONIN Q4H Lab 02/28/22 11:20 Completed TROPONIN Q4H Lab 02/28/22 15:30 Ordered TROPONIN Q4H Lab 02/28/22 19:30 Ordered UA W/RFX CULTURE Stat Lab 02/28/22 Ordered Medication Summary Discontinued Medications Generic Name Dose Route Start Last Admin Trade Name Freq PRN Reason Stop Dose Admin Sodium Chloride 1,000 mls @ 999 mls/hr 02/28/22 11:29 02/28/22 12:45 Sodium Chloride 0.9% 1000 Ml IV 02/28/22 12:29 Infused .Q1H1M STA Infusion Sodium Chloride Confirm 02/28/22 11:35 Sodium Chloride 0.9% 1000 Ml Administered 02/28/22 11:36 Dose 1,000 mls @ ud .ROUTE .[facility] Sodium Chloride 1,000 mls @ 999 mls/hr 02/28/22 12:33 02/28/22 12:34 Sodium Chloride 0.9% 1000 Ml IV 02/28/22 13:33 999 mls/hr .Q1H1M STA Administration Sodium Chloride Confirm 02/28/22 12:31 Sodium Chloride 0.9% 1000 Ml Administered 02/28/22 12:32 Dose 1,000 mls @ ud .ROUTE .[facility] Lab/Rad Data: Laboratory Result Diagrams 02/28/22 11:20 02/28/22 11:20 Laboratory Results 02/28/22 02/28/22 02/28/22 Range/Units 11:36 11:20 11:20 WBC (4.0-10.5) x10^3/uL RBC (4.1-5.4) x10^6/uL Hgb (12.0-16.0) g/dL Hct (35-47) % MCV (78-100) fL MCH (26-32) pg MCHC (32-36) g/dL RDW (11.5-14.0) % Plt Count (150-450) x10^3/uL MPV (7.5-11.0) fL Gran % (36.0-66.0) % Immature Gran % (Auto) (0.00-0.4) % Nucleat RBC Rel Count (0.00-0.1) % Eos # (Auto) (0-0.5) x10^3/uL Immature Gran # (Auto) (0.00-0.03) x10^3u/L Absolute Lymphs (auto) (1.0-4.6) x10^3/uL Absolute Monos (auto) (0.0-1.3) x10^3/uL Absolute Nucleated RBC (0.00-0.01) x10^3u/L Lymphocytes % (24.0-44.0) % Monocytes % (0.0-12.0) % Eosinophils % (0.00-5.0) % Basophils % (0.0-0.4) % Absolute Granulocytes (1.4-6.9) x10^3/uL Basophils # (0-0.4) x10^3/uL Sodium 135 L (137-145) mmol/L Potassium 3.9 (3.5-5.1) mmol/L Chloride 108 H (98-107) mmol/L Carbon Dioxide 21 L (22-30) mmol/L Anion Gap 9.2 (5-15) MEQ/L BUN 7 (7-17) mg/dL Creatinine 0.35 L (0.52-1.04) mg/dL Estimated GFR > 60.0 ML/MIN Glucose 87 (74-106) mg/dL Lactic Acid 1.3 (0.4-2.0) Calcium 8.7 (8.4-10.2) mg/dL Magnesium 1.8 (1.6-2.3) mg/dL Total Bilirubin 0.30 (0.2-1.3) mg/dL AST 19 (14-36) U/L ALT 12 (0-35) U/L Alkaline Phosphatase 170 H (38-126) U/L Troponin I < 0.012 (0.000-0.034) ng/mL NT-Pro-B Natriuret Pep 49.1 (0-450) pg/mL Serum Total Protein 7.0 (6.3-8.2) g/dL Albumin 3.5 (3.5-5.0) g/dL Amylase 64 (30-110) U/L Lipase 37 (23-300) U/L 02/28/22 Range/Units 11:20 WBC 6.7 (4.0-10.5) x10^3/uL RBC 3.79 L (4.1-5.4) x10^6/uL Hgb 9.1 L (12.0-16.0) g/dL Hct 30.1 L (35-47) % MCV 79.4 (78-100) fL MCH 24.0 L (26-32) pg MCHC 30.2 L (32-36) g/dL RDW 16.1 H (11.5-14.0) % Plt Count 195 (150-450) x10^3/uL MPV 11.6 H (7.5-11.0) fL Gran % 75.5 H (36.0-66.0) % Immature Gran % (Auto) 0.4 (0.00-0.4) % Nucleat RBC Rel Count 0.0 (0.00-0.1) % Eos # (Auto) 0.04 (0-0.5) x10^3/uL Immature Gran # (Auto) 0.03 (0.00-0.03) x10^3u/L Absolute Lymphs (auto) 1.02 (1.0-4.6) x10^3/uL Absolute Monos (auto) 0.54 (0.0-1.3) x10^3/uL Absolute Nucleated RBC 0.00 (0.00-0.01) x10^3u/L Lymphocytes % 15.3 L (24.0-44.0) % Monocytes % 8.1 (0.0-12.0) % Eosinophils % 0.6 (0.00-5.0) % Basophils % 0.1 (0.0-0.4) % Absolute Granulocytes 5.03 (1.4-6.9) x10^3/uL Basophils # 0.01 (0-0.4) x10^3/uL Sodium (137-145) mmol/L Potassium (3.5-5.1) mmol/L Chloride (98-107) mmol/L Carbon Dioxide (22-30) mmol/L Anion Gap (5-15) MEQ/L BUN (7-17) mg/dL Creatinine (0.52-1.04) mg/dL Estimated GFR ML/MIN Glucose (74-106) mg/dL Lactic Acid (0.4-2.0) Calcium (8.4-10.2) mg/dL Magnesium (1.6-2.3) mg/dL Total Bilirubin (0.2-1.3) mg/dL AST (14-36) U/L ALT (0-35) U/L Alkaline Phosphatase (38-126) U/L Troponin I (0.000-0.034) ng/mL NT-Pro-B Natriuret Pep (0-450) pg/mL Serum Total Protein (6.3-8.2) g/dL Albumin (3.5-5.0) g/dL Amylase (30-110) U/L Lipase (23-300) U/L - Progress Progress: improved Air Movement: good Blood Culture(s) Obtained: No Antibiotics given: No Discussed with Dr.: Freedman - Departure Departure Disposition: Home Clinical Impression: Tachycardia Condition: Stable Critical Care Time: No Referrals: DOCTOR,NO FAMILY [Primary Care Provider] - Follow up/PCP as directed Instructions: Palpitations (DC)
[2022-02-28 14:02] VITALS: BP 128/86; PULSE 90; O2SAT 96
== END 2022-02-28 14:02 | disposition home or self-care (01) ==
LOC: ED 10:46
DX: O99.891 Other specified diseases and conditions complicating pregnancy (principal); R00.0 Tachycardia, unspecified; Z3A.38 38 weeks gestation of pregnancy; Z79.899 Other long term (current) drug therapy; Z28.310 Unvaccinated for COVID-19
CPT/HCPCS: 36415; 80053; 82150; 83605; 83690; 83735; 83880; 84484; 85025; 93005; 99284

== ENCOUNTER 2022-03-04 08:29 | Inpatient (IN) | payer OTHER ==
[2022-03-04] MEDS ORDERED: XYLOCAINE 1% HCL 20 ML MDV IJ PRN (18:43)
[2022-03-04] MEDS ORDERED: Zofran 4 MG/2 ML VIAL IV PRN (18:43)
[2022-03-04] MEDS ORDERED: PITOCIN 30 UNITS/ LR 500 ML 30 UNITS/500 ML PLAST..BAG IV SCH (19:00)
[2022-03-04] MEDS ORDERED: Lactated Ringers 1,000 ML IV SCH (19:00)
[2022-03-04 19:01] LABS: Absolute Neutrophil Ct (ANC) 6.33 x10^3/uL (1.4-6.9); Basophil (Absolute #) 0.01 x10^3/uL (0-0.4); Eosinophil % 0.7 % (0.00-5.0); Eosinophil (Absolute #) 0.06 x10^3/uL (0-0.5); Hematocrit 29.8 % (35-47); Lymphocyte (Absolute #) 1.27 x10^3/uL (1.0-4.6); Lymphocytes % 15.5 % (24.0-44.0); Mean Cell Volume 78.8 fL (78-100); Mean Corpuscular Hemoglobin 23.8 pg (26-32); Mean Corpuscular Hgb Concent. 30.2 g/dL (32-36); Mean Platelet Volume 11.3 fL (7.5-11.0); Monocyte (Absolute #) 0.51 x10^3/uL (0.0-1.3); Monocytes % 6.2 % (0.0-12.0); Neutrophil % 77.1 % (36.0-66.0); Platelet Count 231 x10^3/uL (150-450); Red Blood Count 3.78 x10^6/uL (4.1-5.4); Red Cell Distribution Width 16.2 % (11.5-14.0); White Blood Count 8.2 x10^3/uL (4.0-10.5)
[2022-03-04 19:16] LABS: ABO TYPING A; Antibody Screen NEGATIVE (NEGATIVE); RH TYPING POSITIVE
[2022-03-04 19:28] LABS: Amphetamine,Urine NEGATIVE (NEGATIVE); Barbiturate,Urine NEGATIVE (NEGATIVE); Benzodiazepine,Urine NEGATIVE (NEGATIVE); Cocaine,Urine NEGATIVE (NEGATIVE); Methadone,Urine NEGATIVE (NEGATIVE); Opiate,Urine NEGATIVE (NEGATIVE); PCP,Urine NEGATIVE (NEGATIVE); THC,Urine NEGATIVE (NEGATIVE)
[2022-03-04] MEDS: STADOL 2 MG IV PRN (22:19)
[2022-03-04] MEDS ORDERED: OMNIPEN 1 GM*** 1 GM in Sodium Chloride 100ML MINI-BAG PLUS 100 ML IV SCH (22:45)
[2022-03-05] MEDS: STADOL 2 MG IV PRN ×2 (01:17→04:18)
[2022-03-05] MEDS ORDERED: OMNIPEN 2 GM*** 2 G in Sodium Chloride 100ML MINI-BAG PLUS 100 ML IV ONE (07:41)
[2022-03-05] MEDS ORDERED: FENTANYL 2 MCG-BUPIV 0.125%-NS 250 ML Epidur 250 ML EPIDURAL SCH (08:00)
[2022-03-05] MEDS ORDERED: PITOCIN 30 UNITS/ LR 500 ML 30 UNITS/500 ML PLAST..BAG IV SCH (08:00)
[2022-03-05] MEDS ORDERED: Reglan 10 MG/2 ML IV SCH ×2 (08:45)
[2022-03-05] MEDS ORDERED: SOD CITRATE-CITRIC ACID SOLN PO SCH ×2 (08:45)
[2022-03-05] MEDS ORDERED: Pepcid 20 MG VIAL IV SCH ×2 (08:45)
[2022-03-05] MEDS ORDERED: XYLOCAINE 2%/Epi 1:200000 20ML VIAL MPF ONE (08:46)
[2022-03-05] MEDS ORDERED: SUBLIMAZE 100 MCG/2 ML ONE (08:46)
[2022-03-05] MEDS ORDERED: PHENYLEPHRINE HCL ONE (08:48)
[2022-03-05] MEDS ORDERED: Decadron 4 MG INJ ONE ×3 (08:48→09:25)
[2022-03-05] MEDS ORDERED: Zofran 4 MG/2 ML VIAL ONE (08:48)
[2022-03-05] MEDS ORDERED: TORAdol 30 mg Injection ONE (08:48)
[2022-03-05] MEDS ORDERED: Pitocin 10 UNITS/ML ONE (08:49)
[2022-03-05] MEDS ORDERED: DEXMEDETOMIDINE 80 MCG/20ML-NS IV ONE (08:59)
[2022-03-05] MEDS ORDERED: Sodium Chloride 0.9(Preservative Free) 10 ML IJ ONE (08:59)
[2022-03-05] MEDS ORDERED: CEFAZOLIN 2 GM-D5W BAG** 2 GM/50 ML ML IV SCH (09:00)
[2022-03-05 09:13] LABS: INR 0.95 (0.8-3.0); PROTIME 10.1 SECONDS (9.4-12.5); PTT 27.6 SECONDS (25.1-36.5)
[2022-03-05] MEDS ORDERED: Lactated Ringers 1,000 ML IV ONE (09:13)
[2022-03-05] MEDS ORDERED: Marcaine 0.5%/Epinephrine 10 ML ONE (09:25)
[2022-03-05] MEDS ORDERED: Ephedrine Sulfate 50 MG/ML ONE (09:30)
[2022-03-05] MEDS ORDERED: Astramorph-Pf 5 MG/10 ML ONE (09:34)
[2022-03-05] MEDS: Dextrose 5%-Lr IV Solution 1000 ML 1,000 ML IV SCH ×2 (12:18→20:38)
[2022-03-05] MEDS ORDERED: Narcan 0.4 MG/ML IV PRN (13:33)
[2022-03-05] MEDS ORDERED: MORPHINE SULFATE 2 MG INJ IV PRN (13:33)
[2022-03-05] MEDS ORDERED: Nubain 10 MG/ML IV PRN (13:33)
[2022-03-05] MEDS ORDERED: CLARITIN 10 MG PO PRN (13:33)
[2022-03-05] MEDS ORDERED: Zofran 4 MG/2 ML VIAL IV PRN (13:33)
[2022-03-05] MEDS: CEFAZOLIN 2 GM-D5W BAG** 2 GM/50 ML ML IV SCH ×2 (16:02→23:48)
[2022-03-05 18:12] LABS: Hematocrit 26.7 % (35-47); Hemoglobin 7.9 g/dL (12.0-16.0); Mean Cell Volume 80.7 fL (78-100); Mean Corpuscular Hemoglobin 23.9 pg (26-32); Mean Corpuscular Hgb Concent. 29.6 g/dL (32-36); Mean Platelet Volume 10.9 fL (7.5-11.0); Platelet Count 210 x10^3/uL (150-450); Red Blood Count 3.31 x10^6/uL (4.1-5.4); Red Cell Distribution Width 16.3 % (11.5-14.0); White Blood Count 14.3 x10^3/uL (4.0-10.5)
[2022-03-05] MEDS ORDERED: TYLENOL EXTRA STRENGTH 500 MG PO PRN (19:59)
[2022-03-05] MEDS ORDERED: Dermoplast Spray TP PRN (19:59)
[2022-03-05] MEDS ORDERED: Mylicon 80MG PO PRN (19:59)
[2022-03-05] MEDS ORDERED: Anucort-HC SUPPOSITORY PR PRN (19:59)
[2022-03-05] MEDS ORDERED: Dulcolax 10 MG SUPP PR PRN (19:59)
[2022-03-05] MEDS ORDERED: CORTISONE 1% CREAM TP PRN (19:59)
[2022-03-05] MEDS ORDERED: LANSINOH 40 GM TOP PRN (19:59)
[2022-03-05] MEDS: Docusate Sodium 100 MG PO SCH (20:38)
[2022-03-06 06:11] LABS: Absolute Neutrophil Ct (ANC) 9.68 x10^3/uL (1.4-6.9); Basophil (Absolute #) 0.01 x10^3/uL (0-0.4); Eosinophil (Absolute #) 0 x10^3/uL (0-0.5); Hematocrit 22.9 % (35-47); Lymphocyte (Absolute #) 1.39 x10^3/uL (1.0-4.6); Lymphocytes % 11.5 % (24.0-44.0); Mean Cell Volume 80.4 fL (78-100); Mean Corpuscular Hemoglobin 23.2 pg (26-32); Mean Corpuscular Hgb Concent. 28.8 g/dL (32-36); Mean Platelet Volume 10.8 fL (7.5-11.0); Monocyte (Absolute #) 0.93 x10^3/uL (0.0-1.3); Monocytes % 7.7 % (0.0-12.0); Neutrophil % 80.1 % (36.0-66.0); Platelet Count 208 x10^3/uL (150-450); Red Blood Count 2.85 x10^6/uL (4.1-5.4); Red Cell Distribution Width 16.4 % (11.5-14.0); White Blood Count 12.1 x10^3/uL (4.0-10.5)
[2022-03-06 06:32] LABS: Hemoglobin 6.6 g/dL (12.0-16.0)
[2022-03-06 06:50] LABS: ALBUMIN 2.8 g/dL (3.5-5.0); ALKALINE PHOSPHATASE 126 U/L (38-126); ANION GAP 6.9 MEQ/L (5-15); BLOOD UREA NITROGEN 7 mg/dL (7-17); CHLORIDE 107 mmol/L (98-107); Calcium 8.2 mg/dL (8.4-10.2); Carbon Dioxide 26 mmol/L (22-30); EST GLOMERULAR FILTRATION RATE > 60.0 ML/MIN; Glucose 100 mg/dL (74-106); Potassium 3.5 mmol/L (3.5-5.1); SGOT/AST 19 U/L (14-36); SGPT/ALT 12 U/L (0-35); SODIUM 137 mmol/L (137-145); Total Protein 5.8 g/dL (6.3-8.2)
[2022-03-06] MEDS ORDERED: Sodium Chloride 0.9% 1000 ML 1,000 ML IV SCH (08:00)
[2022-03-06] MEDS ORDERED: ENOXAPARIN SODIUM SQ SCH (08:00)
[2022-03-06 08:39] LABS: ABO TYPING A; Antibody Screen NEGATIVE (NEGATIVE); RH TYPING POSITIVE
[2022-03-06 08:41] LABS: CROSS MATCH (PRBC) COMPATIBLE (COMPATIBLE)
--- NOTE | 2022-03-06 09:35 | PCM.NOTE ---
Date and Time: 03/06/22931 Subjective Assessment: pod 1 sp csection pt resting in bed and doing well ambulating and tolerating diet vss afebrile abd; soft dressing intact with minimal soiling uterus; firm lochia; mild hgb; 6.6 a/p sp csection pod 1 with postop anemia will transfuse 1 unit today will repeat cbc this evening and tomorrow am anticipate discharge tomorrow OBJECTIVE DATA Vital Signs: Vital Signs - 24 hr Temp Pulse Resp BP Pulse Ox 03/06/22 06:33 99 03/06/22 06:04 97.9 F 93 H 16 110/58 100 03/06/22 06:00 100 03/06/22 04:36 96 03/06/22 04:00 96 03/06/22 03:00 96 H 18 99 03/06/22 01:12 EST 96 03/06/22 01:36 EDT 97 03/06/22 01:13 EDT 97 03/06/22 01:00 EDT 97 03/06/22 00:00 98.6 F 98 H 18 120/65 96 03/05/22 22:34 97 03/05/22 22:00 99 03/05/22 21:00 99 03/05/22 19:56 98.3 F 100 H 18 119/70 98 03/05/22 19:36 98 03/05/22 19:00 98 03/05/22 18:00 99 03/05/22 17:00 99 03/05/22 16:00 99 03/05/22 15:00 97.5 F 86 18 107/55 99 03/05/22 14:00 97.5 F 85 18 113/59 99 03/05/22 13:30 97.5 F 83 18 106/59 97 03/05/22 13:00 97.5 F 82 18 106/55 100 03/05/22 12:30 97.5 F 101 H 18 112/61 99 03/05/22 12:00 97.5 F 98 H 18 99/57 100 03/05/22 11:45 97.5 F 97 H 18 103/57 98 03/05/22 11:30 97.5 F 104 H 18 100/58 100 03/05/22 11:15 97.5 F 104 H 18 100/58 100 03/05/22 11:00 97.5 F 112 H 18 98/55 100 Pain Assessment - Last Documented Pain Intensity [Anterior/ 10 Posterior] Pain Intensity 0 Pain Scale Used 0-10 Pain Scale Intake and Output: Intake & Output 03/03/22 03/04/22 03/05/22 03/06/22 11:59 11:59 11:59 10:59 Intake Total 5500 4465 Output Total 5 1080 Balance 5495 2115 Weight 102.512 kg Lab Results: Lab Results-Last 24 Hours 03/05/22 03/06/22 03/06/22 Range/Units 18:08 05:30 05:30 WBC 14.3 H (4.0-10.5) x10^3/uL RBC 3.31 L (4.1-5.4) x10^6/uL Hgb 7.9 L (12.0-16.0) g/dL Hct 26.7 L (35-47) % MCV 80.7 (78-100) fL MCH 23.9 L (26-32) pg MCHC 29.6 L (32-36) g/dL RDW 16.3 H (11.5-14.0) % Plt Count 210 (150-450) x10^3/uL MPV 10.9 (7.5-11.0) fL Gran % (36.0-66.0) % Immature Gran % (Auto) (0.00-0.4) % Nucleat RBC Rel Count (0.00-0.1) % Eos # (Auto) (0-0.5) x10^3/uL Immature Gran # (Auto) (0.00-0.03) x10^3u/L Absolute Lymphs (auto) (1.0-4.6) x10^3/uL Absolute Monos (auto) (0.0-1.3) x10^3/uL Absolute Nucleated RBC (0.00-0.01) x10^3u/L Lymphocytes % (24.0-44.0) % Monocytes % (0.0-12.0) % Eosinophils % (0.00-5.0) % Basophils % (0.0-0.4) % Absolute Granulocytes (1.4-6.9) x10^3/uL Basophils # (0-0.4) x10^3/uL Sodium (137-145) mmol/L Potassium (3.5-5.1) mmol/L Chloride (98-107) mmol/L Carbon Dioxide (22-30) mmol/L Anion Gap (5-15) MEQ/L BUN (7-17) mg/dL Creatinine (0.52-1.04) mg/dL Estimated GFR ML/MIN Glucose (74-106) mg/dL Calcium (8.4-10.2) mg/dL Total Bilirubin (0.2-1.3) mg/dL AST (14-36) U/L ALT (0-35) U/L Alkaline Phosphatase (38-126) U/L Serum Total Protein (6.3-8.2) g/dL Albumin (3.5-5.0) g/dL ABO Group A Rh Factor POSITIVE Antibody Screen NEGATIVE (NEGATIVE) Crossmatch COMPATIBLE COMPATIBLE (COMPATIBLE) 03/06/22 03/06/22 Range/Units 05:50 05:50 WBC 12.1 H (4.0-10.5) x10^3/uL RBC 2.85 L (4.1-5.4) x10^6/uL Hgb 6.6 L* (12.0-16.0) g/dL Hct 22.9 L (35-47) % MCV 80.4 (78-100) fL MCH 23.2 L (26-32) pg MCHC 28.8 L (32-36) g/dL RDW 16.4 H (11.5-14.0) % Plt Count 208 (150-450) x10^3/uL MPV 10.8 (7.5-11.0) fL Gran % 80.1 H (36.0-66.0) % Immature Gran % (Auto) 0.6 H (0.00-0.4) % Nucleat RBC Rel Count 0.0 (0.00-0.1) % Eos # (Auto) 0 (0-0.5) x10^3/uL Immature Gran # (Auto) 0.07 H (0.00-0.03) x10^3u/L Absolute Lymphs (auto) 1.39 (1.0-4.6) x10^3/uL Absolute Monos (auto) 0.93 (0.0-1.3) x10^3/uL Absolute Nucleated RBC 0.00 (0.00-0.01) x10^3u/L Lymphocytes % 11.5 L (24.0-44.0) % Monocytes % 7.7 (0.0-12.0) % Eosinophils % 0.0 (0.00-5.0) % Basophils % 0.1 (0.0-0.4) % Absolute Granulocytes 9.68 H (1.4-6.9) x10^3/uL Basophils # 0.01 (0-0.4) x10^3/uL Sodium 137 (137-145) mmol/L Potassium 3.5 (3.5-5.1) mmol/L Chloride 107 (98-107) mmol/L Carbon Dioxide 26 (22-30) mmol/L Anion Gap 6.9 (5-15) MEQ/L BUN 7 (7-17) mg/dL Creatinine 0.40 L (0.52-1.04) mg/dL Estimated GFR > 60.0 ML/MIN Glucose 100 (74-106) mg/dL Calcium 8.2 L (8.4-10.2) mg/dL Total Bilirubin 0.20 (0.2-1.3) mg/dL AST 19 (14-36) U/L ALT 12 (0-35) U/L Alkaline Phosphatase 126 (38-126) U/L Serum Total Protein 5.8 L (6.3-8.2) g/dL Albumin 2.8 L (3.5-5.0) g/dL ABO Group Rh Factor Antibody Screen (NEGATIVE) Crossmatch (COMPATIBLE) Assessment/Plan (1) S/P primary low transverse Current Visit: Yes Status: Acute Code(s): Z98.891 - HISTORY OF UTERINE SCAR FROM PREVIOUS SURGERY (2) Postoperative anemia Current Visit: Yes Status: Acute Code(s): D64.9 - ANEMIA, UNSPECIFIED (3) Postoperative anemia due to acute blood loss Current Visit: Yes Status: Acute Code(s): D62 - ACUTE POSTHEMORRHAGIC ANEMIA
[2022-03-06] MEDS ORDERED: Adacel Vial IM ONE (10:00)
[2022-03-06 10:04] LABS: Slide Review 1 YES
[2022-03-06] MEDS: FERREX 150 PO SCH (10:23)
[2022-03-06] MEDS: Docusate Sodium 100 MG PO SCH ×2 (10:23→21:58)
[2022-03-06] MEDS: MOTRIN 400 MG PO PRN (14:04)
[2022-03-06 16:31] LABS: Hematocrit 25.1 % (35-47); Hemoglobin 7.8 g/dL (12.0-16.0); Mean Cell Volume 82.3 fL (78-100); Mean Corpuscular Hemoglobin 25.6 pg (26-32); Mean Corpuscular Hgb Concent. 31.1 g/dL (32-36); Mean Platelet Volume 9.7 fL (7.5-11.0); Platelet Count 180 x10^3/uL (150-450); Red Blood Count 3.05 x10^6/uL (4.1-5.4); Red Cell Distribution Width 16.7 % (11.5-14.0); White Blood Count 10.1 x10^3/uL (4.0-10.5)
[2022-03-06 19:27] LABS: HBsAg Screen Negative (Negative)
[2022-03-06 21:56] VITALS: BP 113/61; PULSE 109; O2SAT 98
[2022-03-06] MEDS: NORCO 5/325 MG PO PRN (21:58)
[2022-03-06 22:31] LABS: Hematocrit 26.7 % (35-47); Mean Corpuscular Hemoglobin 25.2 pg (26-32); Mean Platelet Volume 10.1 fL (7.5-11.0); Platelet Count 181 x10^3/uL (150-450); Red Blood Count 3.18 x10^6/uL (4.1-5.4); Red Cell Distribution Width 16.8 % (11.5-14.0); White Blood Count 9.9 x10^3/uL (4.0-10.5)
[2022-03-07] MEDS: NORCO 5/325 MG PO PRN (03:59)
[2022-03-07] MEDS: MOTRIN 400 MG PO PRN ×2 (04:52→13:32)
[2022-03-07 06:20] LABS: Absolute Neutrophil Ct (ANC) 5.68 x10^3/uL (1.4-6.9); Basophil (Absolute #) 0.02 x10^3/uL (0-0.4); Eosinophil % 0.2 % (0.00-5.0); Eosinophil (Absolute #) 0.02 x10^3/uL (0-0.5); Hematocrit 26.5 % (35-47); Hemoglobin 7.9 g/dL (12.0-16.0); Lymphocyte (Absolute #) 2.39 x10^3/uL (1.0-4.6); Lymphocytes % 27.1 % (24.0-44.0); Mean Cell Volume 83.1 fL (78-100); Mean Corpuscular Hemoglobin 24.8 pg (26-32); Mean Corpuscular Hgb Concent. 29.8 g/dL (32-36); Mean Platelet Volume 10.4 fL (7.5-11.0); Monocytes % 7.9 % (0.0-12.0); Neutrophil % 64.4 % (36.0-66.0); Platelet Count 185 x10^3/uL (150-450); Red Blood Count 3.19 x10^6/uL (4.1-5.4); Red Cell Distribution Width 16.8 % (11.5-14.0); White Blood Count 8.8 x10^3/uL (4.0-10.5)
[2022-03-07] MEDS: FERREX 150 PO SCH (08:47)
[2022-03-07] MEDS: Docusate Sodium 100 MG PO SCH (08:47)
[2022-03-07] MEDS ORDERED: DEXMEDETOMIDINE 80 MCG/20ML-NS IV ONE (08:57)
[2022-03-07] MEDS ORDERED: Sodium Chloride 0.9(Preservative Free) 10 ML IJ ONE (08:57)
--- NOTE | 2022-03-07 09:06 | PCM.NOTE ---
Date and Time: 03/07/22904 Subjective Assessment: pod 2 sp csection pt resting in bed and doing well. ambulating and tolerating diet. vss afebrile abd; soft incision c/d/intact uterus; firm lochia; mild a/p sp csection pod 2 with postop anemia pt stable for discharge today should fu in office in 2 wks OBJECTIVE DATA Vital Signs: Vital Signs - 24 hr Temp Pulse Resp BP Pulse Ox 03/06/22 21:00 98.1 F 109 H 18 113/61 98 03/06/22 18:00 99 03/06/22 17:00 98.5 F 104 H 16 132/62 100 03/06/22 16:00 100 03/06/22 15:00 99 03/06/22 13:00 98.3 F 114 H 18 119/62 99 03/06/22 12:00 98 03/06/22 11:00 99 03/06/22 10:00 100 Pain Assessment - Last Documented Pain Intensity [Anterior/ 4 Posterior] Pain Intensity 7 Pain Scale Used 0-10 Pain Scale Intake and Output: Intake & Output 03/04/22 03/05/22 03/06/22 03/07/22 12:59 12:59 11:59 11:59 Intake Total 1240 Output Total Balance 1240 Weight Lab Results: Lab Results-Last 24 Hours 03/04/22 03/06/22 03/06/22 Range/Units 17:45 05:50 16:29 WBC 10.1 (4.0-10.5) x10^3/uL RBC 3.05 L (4.1-5.4) x10^6/uL Hgb 7.8 L (12.0-16.0) g/dL Hct 25.1 L (35-47) % MCV 82.3 (78-100) fL MCH 25.6 L (26-32) pg MCHC 31.1 L (32-36) g/dL RDW 16.7 H (11.5-14.0) % Plt Count 180 (150-450) x10^3/uL MPV 9.7 (7.5-11.0) fL Gran % (36.0-66.0) % Immature Gran % (Auto) (0.00-0.4) % Nucleat RBC Rel Count (0.00-0.1) % Eos # (Auto) (0-0.5) x10^3/uL Immature Gran # (Auto) (0.00-0.03) x10^3u/L Absolute Lymphs (auto) (1.0-4.6) x10^3/uL Absolute Monos (auto) (0.0-1.3) x10^3/uL Absolute Nucleated RBC (0.00-0.01) x10^3u/L Lymphocytes % (24.0-44.0) % Monocytes % (0.0-12.0) % Eosinophils % (0.00-5.0) % Basophils % (0.0-0.4) % Absolute Granulocytes (1.4-6.9) x10^3/uL Basophils # (0-0.4) x10^3/uL Hep Bs Antigen Negative (Negative) Slides for Path Review YES 03/06/22 03/07/22 Range/Units 22:30 06:20 WBC 9.9 8.8 (4.0-10.5) x10^3/uL RBC 3.18 L 3.19 L (4.1-5.4) x10^6/uL Hgb 8.0 L 7.9 L (12.0-16.0) g/dL Hct 26.7 L 26.5 L (35-47) % MCV 84.0 83.1 (78-100) fL MCH 25.2 L 24.8 L (26-32) pg MCHC 30.0 L 29.8 L (32-36) g/dL RDW 16.8 H 16.8 H (11.5-14.0) % Plt Count 181 185 (150-450) x10^3/uL MPV 10.1 10.4 (7.5-11.0) fL Gran % 64.4 (36.0-66.0) % Immature Gran % (Auto) 0.2 (0.00-0.4) % Nucleat RBC Rel Count 0.0 (0.00-0.1) % Eos # (Auto) 0.02 (0-0.5) x10^3/uL Immature Gran # (Auto) 0.02 (0.00-0.03) x10^3u/L Absolute Lymphs (auto) 2.39 (1.0-4.6) x10^3/uL Absolute Monos (auto) 0.70 (0.0-1.3) x10^3/uL Absolute Nucleated RBC 0.00 (0.00-0.01) x10^3u/L Lymphocytes % 27.1 (24.0-44.0) % Monocytes % 7.9 (0.0-12.0) % Eosinophils % 0.2 (0.00-5.0) % Basophils % 0.2 (0.0-0.4) % Absolute Granulocytes 5.68 (1.4-6.9) x10^3/uL Basophils # 0.02 (0-0.4) x10^3/uL Hep Bs Antigen (Negative) Slides for Path Review Assessment/Plan (1) S/P primary low transverse Current Visit: Yes Status: Acute Code(s): Z98.891 - HISTORY OF UTERINE SCAR FROM PREVIOUS SURGERY (2) Postoperative anemia Current Visit: Yes Status: Acute Code(s): D64.9 - ANEMIA, UNSPECIFIED (3) Postoperative anemia due to acute blood loss Current Visit: Yes Status: Acute Code(s): D62 - ACUTE POSTHEMORRHAGIC ANEMIA
--- NOTE | 2022-03-07 09:12 | PCM.DS ---
Discharge Summary Date of Admission: 03/05/22 08:29 Admitting Physician: NESSA ACOSTA DO Consults: Consults on Case 03/05/22 08:43 Notify Anesthesia Provider ROUTINE 03/05/22 12:43 Navigation ONCE 03/05/22 13:33 Notify Anesthesia Provider PRN 03/05/22 19:59 Notify Physician ROUTINE Primary Care Provider: NO FAMILY DOCTOR Allergies Allergies No Known Drug Allergies Allergy (Verified 03/04/22 18:23) Hospital Summary - Hospital Course Hospital Course: pt admitted on mar 04 for cytotec vaginal induction at 39 wks gestation and on mar 05 had arom and soon thereafter was noted having nonreasurring heart rate tracing with repetitive late decelerations. it was then determined to proceed with csection. pt underwent procedure and was done without complication however had an ebl of 1200cc. on pod 1 did well however was noted to be anemic to 6.7 and was given 2 units of prbc for which her hgb level remained stable at 8. pt at this time is able to ambulate and tolerate diet and incision c/d/i ntact. pt at this time stable for discharge and was given norco for pain management and was advised to take iron sulfate bid for anemia. all questions answered to her satisfaction and was told to fu in office in 2 wks for postop care. - Vitals & Intake/Output Vital Signs: Vital Signs Temperature 98.1 F 03/06/22 21:00 Pulse Rate 109 H 03/06/22 21:00 Respiratory Rate 18 03/06/22 21:00 Blood Pressure 113/61 03/06/22 21:00 O2 Sat by Pulse Oximetry 98 03/06/22 21:00 Intake & Output: Intake & Output 03/04/22 03/05/22 03/06/22 03/07/22 12:59 12:59 11:59 11:59 Intake Total 1240 Output Total Balance 1240 Weight - Lab Result Diagrams: 03/07/22 06:20 03/06/22 05:50 Lab Results-Last 24 Hrs: Lab Results-Last 24 Hours 03/04/22 03/06/22 03/06/22 Range/Units 17:45 05:50 16:29 WBC 10.1 (4.0-10.5) x10^3/uL RBC 3.05 L (4.1-5.4) x10^6/uL Hgb 7.8 L (12.0-16.0) g/dL Hct 25.1 L (35-47) % MCV 82.3 (78-100) fL MCH 25.6 L (26-32) pg MCHC 31.1 L (32-36) g/dL RDW 16.7 H (11.5-14.0) % Plt Count 180 (150-450) x10^3/uL MPV 9.7 (7.5-11.0) fL Gran % (36.0-66.0) % Immature Gran % (Auto) (0.00-0.4) % Nucleat RBC Rel Count (0.00-0.1) % Eos # (Auto) (0-0.5) x10^3/uL Immature Gran # (Auto) (0.00-0.03) x10^3u/L Absolute Lymphs (auto) (1.0-4.6) x10^3/uL Absolute Monos (auto) (0.0-1.3) x10^3/uL Absolute Nucleated RBC (0.00-0.01) x10^3u/L Lymphocytes % (24.0-44.0) % Monocytes % (0.0-12.0) % Eosinophils % (0.00-5.0) % Basophils % (0.0-0.4) % Absolute Granulocytes (1.4-6.9) x10^3/uL Basophils # (0-0.4) x10^3/uL Hep Bs Antigen Negative (Negative) Slides for Path Review YES 03/06/22 03/07/22 Range/Units 22:30 06:20 WBC 9.9 8.8 (4.0-10.5) x10^3/uL RBC 3.18 L 3.19 L (4.1-5.4) x10^6/uL Hgb 8.0 L 7.9 L (12.0-16.0) g/dL Hct 26.7 L 26.5 L (35-47) % MCV 84.0 83.1 (78-100) fL MCH 25.2 L 24.8 L (26-32) pg MCHC 30.0 L 29.8 L (32-36) g/dL RDW 16.8 H 16.8 H (11.5-14.0) % Plt Count 181 185 (150-450) x10^3/uL MPV 10.1 10.4 (7.5-11.0) fL Gran % 64.4 (36.0-66.0) % Immature Gran % (Auto) 0.2 (0.00-0.4) % Nucleat RBC Rel Count 0.0 (0.00-0.1) % Eos # (Auto) 0.02 (0-0.5) x10^3/uL Immature Gran # (Auto) 0.02 (0.00-0.03) x10^3u/L Absolute Lymphs (auto) 2.39 (1.0-4.6) x10^3/uL Absolute Monos (auto) 0.70 (0.0-1.3) x10^3/uL Absolute Nucleated RBC 0.00 (0.00-0.01) x10^3u/L Lymphocytes % 27.1 (24.0-44.0) % Monocytes % 7.9 (0.0-12.0) % Eosinophils % 0.2 (0.00-5.0) % Basophils % 0.2 (0.0-0.4) % Absolute Granulocytes 5.68 (1.4-6.9) x10^3/uL Basophils # 0.02 (0-0.4) x10^3/uL Hep Bs Antigen (Negative) Slides for Path Review - Procedures and Test Procedures and Tests throughout Hospitalization: Therapy Orders & Screens 03/05/22 10:01 Standby ROUTINE Comment: Diagnosis: IUP Final Diagnosis/Problem List - Final Discharge Diagnosis/Problem (1) S/P primary low transverse Current Visit: Yes Status: Acute Code(s): Z98.891 - HISTORY OF UTERINE SCAR FROM PREVIOUS SURGERY (2) Postoperative anemia Current Visit: Yes Status: Acute Code(s): D64.9 - ANEMIA, UNSPECIFIED (3) Postoperative anemia due to acute blood loss Current Visit: Yes Status: Acute Code(s): D62 - ACUTE POSTHEMORRHAGIC ANEMIA - Discharge Disposition: Home, Self-Care Condition: Stable Prescriptions: New Hydrocodone/Acetaminophen [Hydrocodone-Acetamin 5-325 mg] 1 tab PO Q6HPRN PRN #30 tablet MDD 4 PRN Reason: Pain No Action Pnv No.95/Ferrous Fum/Folic AC [ Caplet] 1 dose PO DAILY Valacyclovir HCl [Valtrex] 500 mg PO DAILY Sertraline HCl [Zoloft] 25 mg PO DAILY Ferrous Sulfate 325 mg [Feosol 325 mg] 325 mg PO DAILY Follow up with: DOCTOR,NO FAMILY [Primary Care Provider] - NESSA ACOSTA DO [ACTIVE STAFF] - 2 weeks (may remove dressing in 4 days should keep incision clean and dry may shower but no bath should fu in office in 2 wks)
--- NOTE | 2022-03-07 12:59 | OP ---
SURGERY DATE/TIME: 03/05/2022 0906 PREOPERATIVE DIAGNOSIS: Intrauterine at 39 weeks gestation with nonreassuring heart rate tracing with repetitive late deceleration, remote from delivery. POSTOPERATIVE DIAGNOSIS: Intrauterine at 39 weeks gestation with nonreassuring heart rate tracing with repetitive late deceleration, remote from delivery with truncal cord. PROCEDURE: Primary section, low flap transverse uterine incision, Pfannenstiel skin incision. SURGEON: Solitario Choudhury D.O. ECONOMIC DEVELOPER: Faiza Pearson, surgical technicians. ANESTHESIA: Epidural. ESTIMATED BLOOD LOSS: 1200 cc. COMPLICATIONS: None. INDICATIONS: The risks, benefits, indications and alternatives of the procedure were reviewed with the patient prior to the procedure. The patient understood the risk of infection, bleeding, bowel injury, bladder injury, ureteral injury, uterine perforation, pelvic infection and thromboembolic disorder associated with this surgery and desired to have this surgery as a possible means to alleviate her current medical condition. DESCRIPTION OF PROCEDURE AND FINDINGS: At this point the patient is taken to the operating room in an urgent manner where her epidural anesthesia was found to be adequate. She was then prepared and draped in the normal sterile fashion in the dorsal supine position with leftward tilt. A Pfannenstiel skin incision is made with a scalpel and carried through to the underlying layer of the fascia with a Bovie. The fascia was then incised in the midline and the incision extended laterally with Hickman scissors. The superior aspect of the fascial incision was then grasped Maddison clamps elevated and the underlying rectus muscles dissected off bluntly. Attention is then turned to the inferior aspect of this incision which in similar fashion was grasped, tented up with Maddison clamps and the rectus muscles dissected off bluntly. The rectus muscles were then at the midline and the peritoneum identified, tented up and entered sharply with Metzenbaum scissors. The peritoneal incision was then extended superiorly and inferiorly with good visualization of the bladder. From this point an César retractor was placed in through the incision as a means to retract. From this point the lower uterine segment was incised in a transverse fashion with a scalpel. The uterine incision was then extended laterally with bandage scissors. From this point the baby's head was then removed and the baby was then delivered atraumatically with the noted truncal cord which was reduced. The nose and mouth were suctioned with bulb suction and the cord clamped and cut. The was then handed off to the awaiting nurses. The placenta was then removed manually. The uterus exteriorized and cleared of all clots and debris. The uterine incision was repaired with 1-0 chromic in a running locked fashion. A second layer of the same suture was used to obtain excellent hemostasis. From this point the uterus is then returned to the abdomen. The gutters were cleared of clots and the peritoneal muscles were closed with interrupted suture using 2-0 chromic suture. The fascia was re-approximated with 0 Vicryl in a running fashion. The subcutaneous layer was closed with 3-0 Vicryl suture and the skin was closed with absorbable trey called INSORB. The patient tolerated the procedure well. Sponge, lap, needle and instrument counts were correct x2. The patient was then taken to the recovery room in stable condition. The patient delivered a live baby girl at 0922 hours. 's were 9 at 1 minute and 9 at 5 minutes and the weight of the baby was 6 pounds 14 ounces.
== END 2022-03-07 14:30 | disposition home or self-care (01) | DRG 787 ==
LOC: OB 08:29 → OBSVTOIN 03-05 08:29
PROVIDERS: ADMIT Obstetrics & Gynecology; ATTEND Obstetrics & Gynecology
PROC: 10D00Z1 Extraction of Products of Conception, Low, Open Approach (ICD-10-PCS; principal; 2022-03-05)
DX: O36.8330 Maternal care for abnormalities of the fetal heart rate or rhythm, third trimester, not applicable or unspecified (principal); D62 Acute posthemorrhagic anemia; D64.9 Anemia, unspecified; Z3A.39 39 weeks gestation of pregnancy; Z37.0 Single live birth; Z20.828 Contact with and (suspected) exposure to other viral communicable diseases
CPT/HCPCS: 36415; 36430; 59426; 59514; 80053; 80307; 81002; 85025; 85027; 85610; 85730; 86850; 86900; 86901; 86922; 87340; 90472; 90715; 94799; 96372; G0378; J0290; J0595; J0690; J1100; J1650; J1885; J2274; J2300; J2370; J2405; J2590; J3010; P9016; A9270-GY

== ENCOUNTER 2023-08-20 06:35 | Emergency (ER) | payer OTHER ==
[2023-08-20 06:51] VITALS: TEMP 98.1
--- NOTE | 2023-08-20 07:04 | ERPHSYRPT ---
- History of Present Illness Time Seen by Provider: 08/20/23 07:04 Source: patient Exam Limitations: no limitations Patient Subjective Stated Complaint: pt states that she woke up with a rash Triage Nursing Assessment: pt ambulated into the er; pt is axo x4; c/o rash; pt denies pain and states itching; rash present to face; no respiratory distress present; skin PDW; vitals wnl Physician History: This is a 23-year-old white female patient who woke up this morning and noticed a generalized, itchy rash. There have been no new exposures to this patient per patient report. Patient is not short of breath. She has no chest pain. Timing/Duration: today Quality: itchy Severity: mild Location: generalized Possible Causes: no cause identified Associated Symptoms: hives Allergies/Adverse Reactions: No Known Drug Allergies Allergy (Verified 03/04/22 18:23) Hx Tetanus, Diphtheria Vaccination/Date Given: No Hx Influenza Vaccination/Date Given: No Hx Pneumococcal Vaccination/Date Given: No Travel Risk - International Travel Have you traveled outside of the country in past 3 weeks: No - Emerging Infectious Disease Are you exhibiting symptoms associated with any current EIDs: No - Review of Systems Constitutional: No Symptoms Eyes: No Symptoms Ears, Nose, & Throat: No Symptoms Respiratory: No Symptoms Cardiac: No Symptoms Abdominal/Gastrointestinal: No Symptoms Genitourinary Symptoms: No Symptoms Musculoskeletal: No Symptoms Skin: Rash Neurological: No Symptoms Psychological: No Symptoms Endocrine: No Symptoms Hematologic/Lymphatic: No Symptoms Immunological/Allergic: No Symptoms All Other Systems: Reviewed and Negative - Past Medical History Pertinent Past Medical History: Yes Neurological History: No Pertinent History ENT History: No Pertinent History Cardiac History: No Pertinent History Respiratory History: No Pertinent History Endocrine Medical History: No Pertinent History Musculoskeletal History: No Pertinent History GI Medical History: No Pertinent History History: No Pertinent History Psycho-Social History: Anxiety, Depression Female Reproductive Disorders: No Pertinent History Other Medical History: HISTORY OF ANXIETY/ DEPRESSION - Past Surgical History Past Surgical History: Yes Neuro Surgical History: No Pertinent History Cardiac: No Pertinent History Respiratory: No Pertinent History Gastrointestinal: Appendectomy Genitourinary: No Pertinent History Musculoskeletal: Orthopedic Surgery Female Surgical History: Section Other Surgical History: lt wrist with hardware Significant Family History: no pertinent family hx - Female History Hx Now: No - Social History Smoking Status: Former smoker Exposure to second hand smoke: No Drug Use: none Patient Lives Alone: No - Nursing Vital Signs Nursing Vital Signs: Initial Vital Signs Temperature 98.1 F 08/20/23 06:41 Pain Scale Pain Intensity 0 - Physical Exam General Appearance: no apparent distress, alert, anxiety, obese Eye Exam: PERRL/EOMI, eyes nml inspection Ears, Nose, Throat Exam: normal ENT inspection, moist mucous membranes Neck Exam: normal inspection, non-tender, supple, full range of motion Respiratory Exam: normal breath sounds, lungs clear, airway intact, No chest tenderness, No respiratory distress Cardiovascular Exam: regular rate/rhythm, normal heart sounds, normal peripheral pulses Gastrointestinal/Abdomen Exam: No tenderness Pelvic Exam: not done Rectal Exam: not done Back Exam: normal inspection, normal range of motion, rash, No CVA tenderness Extremity Exam: normal inspection, normal range of motion, pelvis stable Neurologic Exam: alert, oriented x 3, cooperative, market specialist II-XII nml as tested Skin Exam: rash (Slightly raised coalesced pink rash generalized) SpO2 Interpretation: normal SpO2: 97 O2 Delivery: Room Air - Course Nursing assessment & vital signs reviewed: Yes Ordered Tests: Medication Summary Discontinued Medications Generic Name Dose Route Start Last Admin Trade Name Freq PRN Reason Stop Dose Admin Diphenhydramine HCl 50 mg 08/20/23 07:29 Diphenhydramine Hcl 25 Mg Capsule PO 08/20/23 07:30 STAT ONE Famotidine 40 mg 08/20/23 07:29 Famotidine 20 Mg Tablet PO 08/20/23 07:30 STAT ONE Prednisone 20 mg 08/20/23 07:31 Prednisone 20 Mg Tablet PO 08/20/23 07:32 STAT ONE - Progress Progress: unchanged Progress Note: 08/20/23 07:41 My medical decision making and the assignment of low complexity to this patient's medical issue today is based on review the patient's past medical history, review of the patient's medication list, review of patient drug allergy list, history present illness and physical findings on examination. No radiographic or laboratory studies are necessary in this patient. Differential diagnosis includes indeterminate rash, contact dermatitis, allergic reaction, hives Counseled pt/family regarding: diagnosis, need for follow-up Medical Desision Making - Independent Historian Additional History obtained from: Spouse - Diagnostic Testing Diagnostic test were ordered, analyzed, and reviewed by me: No - Risk of complications The pt has a mod risk of morbidity or mortality based on: Need for prescription drug management - Departure Departure Disposition: Home Clinical Impression: Contact dermatitis Condition: Stable Critical Care Time: No Referrals: DOCTOR,NO FAMILY [Primary Care Provider] - Follow up/PCP as directed Additional Instructions: Keep your skin moistened with nonperfumed lotion twice a day. Take Benadryl 25 mg 3 times a day for the next 5 days. Take your prescription medicine as prescribed. Call your primary care provider tomorrow, 08/21/2023, to make arranges for follow-up appointment for further evaluation management in the next 5 to 7 days. Prescriptions: Prednisone 10 mg [Deltasone 10 mg] 10 mg PO TID #12 tablet Famotidine 20 mg [Pepcid 20 MG] 20 mg PO DAILY #5 tablet
[2023-08-20] MEDS ORDERED: BENADRYL 25 MG CAPSULE ONE (07:33)
[2023-08-20] MEDS ORDERED: DELTASONE 20 MG ONE (07:33)
[2023-08-20] MEDS ORDERED: Pepcid 20 MG ONE (07:33)
[2023-08-20] MEDS: BENADRYL 25 MG CAPSULE PO ONE (07:34)
[2023-08-20] MEDS: Pepcid 20 MG PO ONE (07:34)
[2023-08-20] MEDS: DELTASONE 20 MG PO ONE (07:34)
[2023-08-20 07:48] VITALS: BP 105/76; PULSE 80; RESP 18; O2SAT 96
== END 2023-08-20 08:08 | disposition home or self-care (01) ==
LOC: ED 06:35
DX: L25.9 Unspecified contact dermatitis, unspecified cause (principal); Z79.52 Long term (current) use of systemic steroids; Z79.899 Other long term (current) drug therapy
CPT/HCPCS: 99282; A9270-GY

== ENCOUNTER 2023-08-25 09:08 | Emergency (ER) | payer OTHER ==
--- NOTE | 2023-08-25 09:24 | ERPHSYRPT ---
- History of Present Illness Time Seen by Provider: 08/25/23 09:23 Source: patient, family Exam Limitations: no limitations Physician History: This is a 23-year-old white female who returns to the emergency department after being evaluated by me on 08/20/2023 with a diagnosis of contact dermatitis. Patient was given a prescription for prednisone, Pepcid and told to take Benadryl [id number]. Patient states that she did these things as she was told to do. She stated that her symptoms were nearly completely resolved. However, she ran out of her medication and over the last 24 to 48 hours her symptoms of skin rash recurred. Patient does not have a primary care provider. She again states he has no new exposures that could be causing this. She is not short of breath. There is no new medications that she is taking. Timing/Duration: day(s) (6), worse Quality: itchy Severity: moderate Location: generalized Possible Causes: no cause identified Modifying Factors: Improves With: antihistamine, prednisone (Improved her symptoms improved her symptoms) Associated Symptoms: rash Allergies/Adverse Reactions: No Known Drug Allergies Allergy (Verified 03/04/22 18:23) Hx Tetanus, Diphtheria Vaccination/Date Given: No Hx Influenza Vaccination/Date Given: No Hx Pneumococcal Vaccination/Date Given: No Travel Risk - International Travel Have you traveled outside of the country in past 3 weeks: No - Emerging Infectious Disease Are you exhibiting symptoms associated with any current EIDs: No - Review of Systems Constitutional: No Symptoms Eyes: No Symptoms Ears, Nose, & Throat: No Symptoms Respiratory: No Symptoms Abdominal/Gastrointestinal: No Symptoms Genitourinary Symptoms: No Symptoms Musculoskeletal: No Symptoms Skin: Rash (Generalized) Neurological: No Symptoms Psychological: No Symptoms Endocrine: No Symptoms Hematologic/Lymphatic: No Symptoms Immunological/Allergic: No Symptoms All Other Systems: Reviewed and Negative - Past Medical History Pertinent Past Medical History: Yes Neurological History: No Pertinent History ENT History: No Pertinent History Cardiac History: No Pertinent History Respiratory History: No Pertinent History Endocrine Medical History: No Pertinent History Musculoskeletal History: No Pertinent History GI Medical History: No Pertinent History History: No Pertinent History Psycho-Social History: Anxiety, Depression Female Reproductive Disorders: No Pertinent History Other Medical History: HISTORY OF ANXIETY/ DEPRESSION - Past Surgical History Past Surgical History: Yes Neuro Surgical History: No Pertinent History Cardiac: No Pertinent History Respiratory: No Pertinent History Gastrointestinal: Appendectomy Genitourinary: No Pertinent History Musculoskeletal: Orthopedic Surgery Female Surgical History: Section Other Surgical History: lt wrist with hardware Significant Family History: no pertinent family hx - Social History Smoking Status: Former smoker Exposure to second hand smoke: No Drug Use: none Patient Lives Alone: No - Nursing Vital Signs Nursing Vital Signs: Initial Vital Signs Temperature 98.1 F 08/25/23 09:21 Pulse Rate 102 H 08/25/23 09:21 Respiratory Rate 18 08/25/23 09:21 Blood Pressure 132/92 08/25/23 09:21 O2 Sat by Pulse Oximetry 98 08/25/23 09:21 Pain Scale Pain Intensity 0 - Physical Exam General Appearance: no apparent distress, alert, obese Eye Exam: PERRL/EOMI, eyes nml inspection Ears, Nose, Throat Exam: normal ENT inspection, moist mucous membranes Neck Exam: normal inspection, non-tender, supple, full range of motion Respiratory Exam: normal breath sounds, lungs clear, airway intact, No chest tenderness, No respiratory distress Gastrointestinal/Abdomen Exam: No tenderness Pelvic Exam: not done Rectal Exam: not done Back Exam: normal range of motion, No CVA tenderness, No vertebral tenderness Extremity Exam: normal inspection, normal range of motion, pelvis stable Neurologic Exam: alert, oriented x 3, cooperative, hides soaker II-XII nml as tested, normal mood/affect, nml cerebellar function, nml station & gait, sensation nml Skin Exam: rash (Generalized, coalesced patches of slightly raised pink rash lesions of uncertain etiology) Lymphatic Exam: No adenopathy SpO2 Interpretation: normal O2 Delivery: Room Air - Course Nursing assessment & vital signs reviewed: Yes Ordered Tests: Medication Summary Discontinued Medications Generic Name Dose Route Start Last Admin Trade Name Freq PRN Reason Stop Dose Admin Methylprednisolone Sodium 0 mg 08/25/23 10:03 08/25/23 10:10 Succinate 125 mg/ Sterile IM 08/25/23 10:04 125 mg Water 2 ml STAT ONE Administration Famotidine 40 mg 08/25/23 10:02 08/25/23 10:10 Famotidine 20 Mg Tablet PO 08/25/23 10:03 40 mg STAT ONE Administration Famotidine Confirm 08/25/23 10:07 Famotidine 20 Mg Tablet Administered 08/25/23 10:08 Dose 40 mg .ROUTE .STK-MED ONE Hydroxyzine HCl 50 mg 08/25/23 10:01 08/25/23 10:09 Hydroxyzine Hcl 25 Mg Tablet PO 08/25/23 10:02 50 mg STAT ONE Administration Hydroxyzine HCl Confirm 08/25/23 10:07 Hydroxyzine Hcl 25 Mg Tablet Administered 08/25/23 10:08 Dose 25 mg .ROUTE .STK-MED ONE Hydroxyzine HCl Confirm 08/25/23 10:09 Hydroxyzine Hcl 25 Mg Tablet Administered 08/25/23 10:10 Dose 25 mg .ROUTE .STK-MED ONE Methylprednisolone Sodium Succinate Confirm 08/25/23 10:07 Methylprednis Sod Succ 125 Mg/2 Ml Vial Administered 08/25/23 10:08 Dose 125 mg .ROUTE .STK-MED ONE Sterile Water Confirm 08/25/23 10:06 Water For Injection,Sterile 10 Ml Vial Administered 08/25/23 10:07 Dose 10 ml IJ .STK-MED ONE - Progress Progress: unchanged, re-examined Progress Note: 08/25/23 10:20 My medical decision making and the assignment of low complexity of this patient's medical issue is based on review of the patient's past medical history, review the patient's medication list, review of patient drug allergy list, history present illness and physical findings on examination. No radiographic or laboratory studies are necessary in this patient. Differential diagnosis includes contact dermatitis, hives, and less likely poison ami. Patient, by her own admission, states that the regimen that I prescribed her nearly resolved her symptoms. However, she ran out of the medications. We will repeat the medication regimen I prescribed to her previously. We also obtained a follow-up appointment for her to be seen by nurse practitioner Nacho on 08/28/2023 at 10:30 in the morning. Counseled pt/family regarding: diagnosis, need for follow-up Medical Desision Making - Independent Historian Additional History obtained from: Spouse - Diagnostic Testing Diagnostic test were ordered, analyzed, and reviewed by me: No - Risk of complications The pt has a mod risk of morbidity or mortality based on: Need for prescription drug management - Departure Departure Disposition: Home Clinical Impression: Contact dermatitis Condition: Stable Critical Care Time: No Referrals: DOCTOR,NO FAMILY [Primary Care Provider] - Follow up/PCP as directed Additional Instructions: Keep your skin clean and moist with unscented moisturizing lotion twice a day. Take your medications as prescribed. Follow-up with nurse practitioner Nacho at 10:30 in the morning on 08/28/2023, and the family practice building on the [facility]. Return to the emergency department if symptoms worsen over the weekend Prescriptions: Hydroxyzine HCl 25 mg [Atarax 25 mg] 25 mg PO Q6H PRN #12 tablet PRN Reason: Itching Prednisone 10 mg [Deltasone 10 mg] 10 mg PO TID #12 tablet Famotidine 20 mg [Pepcid 20 MG] 20 mg PO DAILY #5 tablet
[2023-08-25 09:35] VITALS: TEMP 98.1
[2023-08-25] MEDS ORDERED: Sterile H2O 10 ml IJ ONE (10:06)
[2023-08-25] MEDS ORDERED: Pepcid 20 MG ONE (10:07)
[2023-08-25] MEDS ORDERED: ATARAX 25 MG ONE ×2 (10:07→10:09)
[2023-08-25] MEDS ORDERED: solu-MEDROL ONE (10:07)
[2023-08-25] MEDS: ATARAX 25 MG PO ONE (10:09)
[2023-08-25] MEDS: solu-MEDROL 125 MG, Sterile H2O 10 ml 2 ML IM ONE (10:10)
[2023-08-25] MEDS: Pepcid 20 MG PO ONE (10:10)
[2023-08-25 10:29] VITALS: BP 123/86; O2SAT 100
[2023-08-25 10:30] VITALS: PULSE 90; RESP 17
== END 2023-08-25 10:50 | disposition home or self-care (01) ==
LOC: ED 09:08
DX: L25.9 Unspecified contact dermatitis, unspecified cause (principal); Z79.52 Long term (current) use of systemic steroids; Z79.899 Other long term (current) drug therapy
CPT/HCPCS: 96372; 99283; J2919; A9270-GY

== ENCOUNTER 2024-02-26 11:54 | Emergency (ER) | payer OTHER ==
[2024-02-26 12:36] VITALS: RESP 18; TEMP 98; O2SAT 100
--- NOTE | 2024-02-26 12:49 | ERPHSYRPT ---
- History of Present Illness Time Seen by Provider: 02/26/24 12:37 Source: patient Exam Limitations: no limitations Patient Subjective Stated Complaint: C/O "not feeling ". Denies pain, cramping, bleeding, N/V. Indicates she was seen by her OB, Dr. Choudhury on 02/12/24 and heard heart tones at that time. Triage Nursing Assessment: Patient ambulated back to ER without difficulties. She is alert and oriented. Skin tone normal. No SOB. Heart tones per ER hand held doppler at 148. Call placed to OB to check heart tones as well. Timing/Duration: today Severity: mild Associated Symptoms: denies symptoms Allergies/Adverse Reactions: No Known Drug Allergies Allergy (Verified 02/26/24 12:03) Home Medications: No Reportable Medications [No Reported Medications] 02/26/24 [History] Hx Tetanus, Diphtheria Vaccination/Date Given: Yes Hx Influenza Vaccination/Date Given: No Hx Pneumococcal Vaccination/Date Given: No Immunizations Up to Date: Yes Travel Risk - International Travel Have you traveled outside of the country in past 3 weeks: No - Emerging Infectious Disease Are you exhibiting symptoms associated with any current EIDs: No - Review of Systems Eyes: No Symptoms Ears, Nose, & Throat: No Symptoms Respiratory: No Symptoms Cardiac: No Symptoms Abdominal/Gastrointestinal: No Symptoms Genitourinary Symptoms: No Symptoms Musculoskeletal: No Symptoms Skin: No Symptoms Neurological: No Symptoms Psychological: No Symptoms Endocrine: No Symptoms Hematologic/Lymphatic: No Symptoms Immunological/Allergic: No Symptoms - Past Medical History Pertinent Past Medical History: Yes Neurological History: No Pertinent History ENT History: No Pertinent History Cardiac History: No Pertinent History Respiratory History: No Pertinent History Endocrine Medical History: No Pertinent History Musculoskeletal History: No Pertinent History GI Medical History: No Pertinent History History: No Pertinent History Psycho-Social History: Anxiety, Depression Female Reproductive Disorders: No Pertinent History Other Medical History: HISTORY OF ANXIETY/ DEPRESSION - Past Surgical History Past Surgical History: Yes Neuro Surgical History: No Pertinent History Cardiac: No Pertinent History Respiratory: No Pertinent History Gastrointestinal: Appendectomy Genitourinary: No Pertinent History Musculoskeletal: Orthopedic Surgery Female Surgical History: Section Other Surgical History: lt wrist with hardware Significant Family History: no pertinent family hx - Female History Hx Now: Yes Gestational Age: 18 weeks - Social History Smoking Status: Former smoker Exposure to second hand smoke: No Drug Use: none Patient Lives Alone: No - Social Determinants of Health Will the patient participate in the screening: Yes Do you worry about a steady place to live?: No Do you have any problems with any of the following?: No known problems In the past 12 months,have you had to go without utilities?: No Transportation Issues: No Has anyone in your support network made you feel unsafe?: No Have you or anyone in your house had to go without enough: No - Nursing Vital Signs Nursing Vital Signs: Initial Vital Signs Temperature 98 F 02/26/24 12:05 Pulse Rate 83 02/26/24 12:05 Respiratory Rate 18 02/26/24 12:05 Blood Pressure 141/88 02/26/24 12:05 O2 Sat by Pulse Oximetry 100 02/26/24 12:05 Pain Scale Pain Intensity 0 - Physical Exam General Appearance: no apparent distress Eye Exam: PERRL/EOMI Ears, Nose, Throat Exam: normal ENT inspection Neck Exam: normal inspection Respiratory Exam: normal breath sounds Cardiovascular Exam: regular rate/rhythm Gastrointestinal/Abdomen Exam: soft, normal bowel sounds SpO2: 100 - Progress Progress Note: Patient was reassured her heart tones are within normal limits- she was informed of the need to follow up with OB-campaign assistant , she has no other complaints at this time 02/26/24 12:47 Medical Desision Making - Discussion of managment Agreed on:: need for follow-up - Departure Clinical Impression: Second trimester fetus, Second trimester Condition: Stable Critical Care Time: No Referrals: DENISA LY NP [Primary Care Provider] - Follow up/PCP as directed
[2024-02-26 13:12] VITALS: BP 126/83; PULSE 90
== END 2024-02-26 13:12 | disposition home or self-care (01) ==
LOC: ED 11:54
DX: Z34.82 Encounter for supervision of other normal pregnancy, second trimester (principal)
CPT/HCPCS: 99283

== ENCOUNTER 2024-04-12 11:58 | Observation (INO) | payer OTHER ==
[2024-04-12 12:28] VITALS: BP 131/93; PULSE 98; O2SAT 98
[2024-04-12 12:41] VITALS: RESP 18; TEMP 98.7
[2024-04-12 13:04] LABS: Amphetamine,Urine NEGATIVE (NEGATIVE); Barbiturate,Urine NEGATIVE (NEGATIVE); Benzodiazepine,Urine NEGATIVE (NEGATIVE); Cocaine,Urine NEGATIVE (NEGATIVE); Methadone,Urine NEGATIVE (NEGATIVE); Opiate,Urine NEGATIVE (NEGATIVE); PCP,Urine NEGATIVE (NEGATIVE); THC,Urine NEGATIVE (NEGATIVE)
[2024-04-12] MEDS: Tums EX 750 MG PO PRN (13:15)
[2024-04-12 14:02] LABS: Appearance Clear (Clear); Bacteria None Seen /HPF (None Seen); Bilirubin Negative (Negative); Blood Negative (Negative); Epithelial Cells None Seen /HPF (None Seen); Glucose, Urine Negative (Negative); Hyaline Casts NONE SEEN /LPF (0-2); Ketones Negative (Negative); Leukocyte Esterase Negative (Negative); Nitrite Negative (Negative); Protein,Urine Dip Negative (Negative); RBC 0-2 /HPF (0-5); Specific Gravity 1.015 (1.005-1.030); Urobilinogen 0.2 mg/dL (0.2); WBC 0-2 /HPF (0-5)
[2024-04-12 14:55] LABS: ALBUMIN 3.8 g/dL (3.5-5.0); ANION GAP 11.3 MEQ/L (5-15); BILIRUBIN,TOTAL 0.4 mg/dL (0.2-1.3); Calcium 9.4 mg/dL (8.4-10.2); Creatinine 1 0.37 mg/dL (0.52-1.04); EST GLOMERULAR FILTRATION RATE 144.3 ML/MIN; Potassium 3.6 mmol/L (3.5-5.1); Total Protein 7.4 g/dL (6.3-8.2); Uric Acid 2.7 mg/dL (2.6-6.0)
[2024-04-12 15:00] LABS: Hematocrit 30.4 % (34.1-44.9); Hemoglobin 9.5 g/dL (11.2-15.7); Mean Cell Volume 80.4 fL (79.4-94.8); Mean Corpuscular Hemoglobin 25.1 pg (25.6-32.2); Mean Corpuscular Hgb Concent. 31.3 g/dL (32.2-35.5); Mean Platelet Volume 10.4 fL (9.4-12.3); Platelet Count 233 x10^3/uL (182-369); Red Blood Count 3.78 x10^6/uL (3.93-5.22); White Blood Count 8.7 x10^3/uL (3.98-10.04)
[2024-04-12 15:58] LABS: Creatinine, Urine Random 111.1 mg/dl; Protein Creatinine Ratio, Ran. 0.1 mg/mg (0.0-0.15)
== END 2024-04-12 16:50 | disposition home or self-care (01) ==
LOC: OB 11:58
PROVIDERS: ADMIT Obstetrics & Gynecology; ATTEND Obstetrics & Gynecology
DX: Z34.82 Encounter for supervision of other normal pregnancy, second trimester (principal); Z3A.24 24 weeks gestation of pregnancy
CPT/HCPCS: 36415; 80053; 80307; 81001; 82570; 83615; 84156; 84550; 85027; G0378; G0379; A9270-GY

== ENCOUNTER 2024-04-15 17:49 | Observation (INO) | payer OTHER ==
[2024-04-15 18:58] VITALS: BP 135/69; PULSE 108; RESP 18; TEMP 97.6; O2SAT 98
== END 2024-04-15 19:20 | disposition home or self-care (01) ==
LOC: OB 17:49
PROVIDERS: ADMIT Obstetrics & Gynecology; ATTEND Obstetrics & Gynecology
DX: Z34.82 Encounter for supervision of other normal pregnancy, second trimester (principal); Z3A.24 24 weeks gestation of pregnancy
CPT/HCPCS: G0378; G0379

== ENCOUNTER 2024-04-15 19:30 | Emergency (ER) | payer OTHER ==
[2024-04-15 20:22] VITALS: TEMP 97.7
--- NOTE | 2024-04-15 20:32 | ERPHSYRPT ---
- History of Present Illness Time Seen by Provider: 04/15/24 20:32 Historian: patient, family Exam Limitations: no limitations Patient Subjective Stated Complaint: Pt. states, "Im having pain in my right upper abdomen that shoots to my back and sometimes across to my left side. I also have pain in the center of my chest that also shoots to my back. I tried to throw up once but nothing came up." Triage Nursing Assessment: Pt. ambulates to room without difficulty, resp even unlabored, skin p/w/d. Able to move all four ext. calm cooperative Physician History: This is an obese 24-year-old white female patient who arrives to the emergency department by private vehicle accompanied by her significant other with the complaint of right upper quad abdominal pain which is sharp and radiates into her right back and sometimes into the left back. The symptoms began at 1630 today. Patient is 25 weeks . She was seen in the OB department prior to arrival here in emergency department cleared medically. Patient has history anxiety and depression. Timing/Duration: today Quality: sharpness, stabbing Abdominal Pain Onset Location: RUQ Pain Radiation: flank (Right flank) Severity of Pain-Max: mild (To moderate) Severity of Pain-Current: mild Modifying Factors: Improves With: nothing Associated Symptoms: denies symptoms Previous symptoms: no prior history Allergies/Adverse Reactions: No Known Drug Allergies Allergy (Verified 02/26/24 12:03) Home Medications: Aspirin EC 81 mg [Ecotrin 81 mg] 81 mg PO DAILY 04/12/24 [History] Hx Tetanus, Diphtheria Vaccination/Date Given: Yes Hx Influenza Vaccination/Date Given: No Hx Pneumococcal Vaccination/Date Given: No Immunizations Up to Date: No Travel Risk - International Travel Have you traveled outside of the country in past 3 weeks: No - Emerging Infectious Disease Are you exhibiting symptoms associated with any current EIDs: Yes Symptoms: Abdominal Pain, Vomitting - Review of Systems Constitutional: No Symptoms Eyes: No Symptoms Ears, Nose, & Throat: No Symptoms Respiratory: No Symptoms Cardiac: No Symptoms Abdominal/Gastrointestinal: Abdominal Pain (Right upper quadrant and epigastrium), Nausea Genitourinary Symptoms: Flank Pain (Right and left flank pain) Musculoskeletal: No Symptoms Skin: No Symptoms Neurological: No Symptoms Psychological: No Symptoms Endocrine: No Symptoms Hematologic/Lymphatic: No Symptoms Immunological/Allergic: No Symptoms All Other Systems: Reviewed and Negative - Past Medical History Pertinent Past Medical History: Yes Neurological History: No Pertinent History ENT History: No Pertinent History Cardiac History: No Pertinent History Respiratory History: No Pertinent History Endocrine Medical History: No Pertinent History Musculoskeletal History: No Pertinent History GI Medical History: No Pertinent History History: No Pertinent History Psycho-Social History: Anxiety, Depression Female Reproductive Disorders: No Pertinent History Other Medical History: HISTORY OF ANXIETY/ DEPRESSION - Past Surgical History Past Surgical History: Yes Neuro Surgical History: No Pertinent History Cardiac: No Pertinent History Respiratory: No Pertinent History Gastrointestinal: Appendectomy Genitourinary: No Pertinent History Musculoskeletal: Orthopedic Surgery Female Surgical History: Section Other Surgical History: lt wrist with hardware Significant Family History: no pertinent family hx - Female History Hx Now: Yes Gestational Age: 24 wks 4 d - Social History Smoking Status: Never smoker Exposure to second hand smoke: No Drug Use: none Patient Lives Alone: No - Social Determinants of Health Will the patient participate in the screening: Yes Do you worry about a steady place to live?: No Do you have any problems with any of the following?: No known problems In the past 12 months,have you had to go without utilities?: No Transportation Issues: No Has anyone in your support network made you feel unsafe?: No Have you or anyone in your house had to go without enough: No - Nursing Vital Signs Nursing Vital Signs: Initial Vital Signs Temperature 97.7 F 04/15/24 20:10 Pulse Rate 105 H 04/15/24 20:10 Respiratory Rate 22 04/15/24 20:10 Blood Pressure 129/83 04/15/24 20:10 O2 Sat by Pulse Oximetry 99 04/15/24 20:10 Pain Scale Pain Intensity 10 - Physical Exam General Appearance: no apparent distress, alert, anxiety, obese Eye Exam: PERRL/EOMI, eyes nml inspection Ears, Nose, Throat Exam: normal ENT inspection, moist mucous membranes Neck Exam: normal inspection, non-tender, supple, full range of motion Respiratory Exam: normal breath sounds, lungs clear, airway intact, No chest tenderness, No respiratory distress Cardiovascular Exam: regular rate/rhythm, normal heart sounds, normal peripheral pulses Gastrointestinal/Abdomen Exam: soft, normal bowel sounds, tenderness (Mild right upper quadrant), No guarding, No rebound Pelvic Exam: not done Rectal Exam: not done Back Exam: normal inspection, normal range of motion, No CVA tenderness, No vertebral tenderness Extremity Exam: normal inspection, normal range of motion, pelvis stable Neurologic Exam: alert, oriented x 3, cooperative, wheelabrator operator II-XII nml as tested, nml cerebellar function, nml station & gait, sensation nml Skin Exam: normal color, warm, dry Lymphatic Exam: No adenopathy SpO2 Interpretation: normal SpO2: 99 O2 Delivery: Room Air - Course Nursing assessment & vital signs reviewed: Yes Ordered Tests: Active Orders 24 hr Category Date Time Status EKG-ER Only STAT Care 04/15/24 20:32 Active IV Insertion STAT Care 04/15/24 20:32 Active ABDOMEN AND PELVIS W/0 CONTRAS [CT] Stat Exams 04/15/24 20:32 Ordered AMYLASE Stat Lab 04/15/24 20:45 Completed CBC W DIFF Stat Lab 04/15/24 20:45 Completed CMP Stat Lab 04/15/24 20:45 Completed CULTURE,URINE Stat Lab 04/15/24 20:37 Received HCG QUALITATIVE, SERUM Stat Lab 04/15/24 20:45 Completed LIPASE Stat Lab 04/15/24 20:45 Completed TROPONIN Q4H Lab 04/15/24 20:45 Completed TROPONIN Q4H Lab 04/16/24 00:45 Ordered TROPONIN Q4H Lab 04/16/24 04:45 Ordered UA W/RFX UR CULTURE Stat Lab 04/15/24 20:37 Completed Medication Summary Discontinued Medications Generic Name Dose Route Start Last Admin Trade Name Freq PRN Reason Stop Dose Admin Cephalexin HCl 500 mg 04/15/24 22:15 04/15/24 22:20 Cephalexin Mh500 Mg Capsule PO 04/15/24 22:16 500 mg STAT ONE Administration Cephalexin HCl Confirm 04/15/24 22:18 Cephalexin Mh500 Mg Capsule Administered 04/15/24 22:19 Dose 500 mg .ROUTE .STK-MED ONE Ondansetron HCl 4 mg 04/15/24 20:32 04/15/24 20:54 Ondansetron Hcl 4 Mg/2 Ml Vial IV 04/15/24 20:33 Not Given STAT ONE Ondansetron HCl Confirm 04/15/24 20:35 Ondansetron Hcl 4 Mg/2 Ml Vial Administered 04/15/24 20:36 Dose 4 mg .ROUTE .STK-MED ONE Pantoprazole Sodium 40 mg 04/15/24 20:32 04/15/24 20:47 Pantoprazole 40 Mg Vial IV 04/15/24 20:33 40 mg STAT ONE Administration Pantoprazole Sodium Confirm 04/15/24 20:35 Pantoprazole 40 Mg Vial Administered 04/15/24 20:36 Dose 40 mg IV .STK-MED ONE Lab/Rad Data: Laboratory Result Diagrams 04/15/24 20:45 04/15/24 20:45 Laboratory Results 04/15/24 04/15/24 04/15/24 Range/Units 20:45 20:45 20:45 WBC (3.98-10.04) x10^3/uL RBC (3.93-5.22) x10^6/uL Hgb (11.2-15.7) g/dL Hct (34.1-44.9) % MCV (79.4-94.8) fL MCH (25.6-32.2) pg MCHC (32.2-35.5) g/dL RDW (11.7-14.4) % Plt Count (182-369) x10^3/uL MPV (9.4-12.3) fL Gran % (34.0-71.1) % Immature Gran % (Auto) (0.001-0.429) % Nucleat RBC Rel Count (0.00-0.2) % Eos # (Auto) (0.04-0.36) x10^3/uL Immature Gran # (Auto) (0.001-0.031) x10^3u/L Absolute Lymphs (auto) (1.18-3.74) x10^3/uL Absolute Monos (auto) (0.24-0.86) x10^3/uL Absolute Nucleated RBC (0.00-0.012) x10^3u/L Lymphocytes % (19.3-51.7) % Monocytes % (4.7-12.5) % Eosinophils % (0.7-5.8) % Basophils % (0.1-1.2) % Absolute Granulocytes (1.56-6.13) x10^3/uL Basophils # (0.01-0.08) x10^3/uL Sodium 133 L (135-145) mmol/L Potassium 3.4 L (3.5-5.1) mmol/L Chloride 106 (98-107) mmol/L Carbon Dioxide 20 L (22-30) mmol/L Anion Gap 11.1 (5-15) MEQ/L BUN 7 (7-17) mg/dL Creatinine 0.38 L (0.52-1.04) mg/dL Estimated GFR 142.5 ML/MIN Glucose 91 (74-106) mg/dL Calcium 9.2 (8.4-10.2) mg/dL Total Bilirubin 0.40 (0.2-1.3) mg/dL AST 24 (14-36) U/L ALT 18 (0-35) U/L Alkaline Phosphatase 105 (38-126) U/L Troponin I < 0.012 (0.000-0.033) ng/mL Serum Total Protein 7.1 (6.3-8.2) g/dL Albumin 3.9 (3.5-5.0) g/dL Amylase 55 (30-110) U/L Lipase 49 (23-300) U/L Serum HCG, Qual POSITIVE (NEGATIVE) Urine Color (Yellow) Urine Appearance (Clear) Urine pH (4.6-8.0) Ur Specific [place] (1.005-1.030) Urine Protein (Negative) Urine Glucose (UA) (Negative) mg/dL Urine Ketones (Negative) Urine Blood (Negative) Urine Nitrite (Negative) Urine Bilirubin (Negative) Urine Urobilinogen (0.2) mg/dL Ur Leukocyte Esterase (Negative) U Hyaline Cast (Auto) (0-2) /LPF Urine Microscopic RBC (0-5) /HPF Urine Microscopic WBC (0-5) /HPF Ur Epithelial Cells (None Seen) /HPF Urine Bacteria (None Seen) /HPF Urine Culture Reflexed (NO) 04/15/24 04/15/24 Range/Units 20:45 20:37 WBC 8.0 (3.98-10.04) x10^3/uL RBC 3.75 L (3.93-5.22) x10^6/uL Hgb 9.5 L (11.2-15.7) g/dL Hct 29.6 L (34.1-44.9) % MCV 78.9 L (79.4-94.8) fL MCH 25.3 L (25.6-32.2) pg MCHC 32.1 L (32.2-35.5) g/dL RDW 15.9 H (11.7-14.4) % Plt Count 239 (182-369) x10^3/uL MPV 10.8 (9.4-12.3) fL Gran % 73.1 H (34.0-71.1) % Immature Gran % (Auto) 0.2 (0.001-0.429) % Nucleat RBC Rel Count 0.0 (0.00-0.2) % Eos # (Auto) 0.04 (0.04-0.36) x10^3/uL Immature Gran # (Auto) 0.02 (0.001-0.031) x10^3u/L Absolute Lymphs (auto) 1.59 (1.18-3.74) x10^3/uL Absolute Monos (auto) 0.50 (0.24-0.86) x10^3/uL Absolute Nucleated RBC 0.00 (0.00-0.012) x10^3u/L Lymphocytes % 19.9 (19.3-51.7) % Monocytes % 6.2 (4.7-12.5) % Eosinophils % 0.5 L (0.7-5.8) % Basophils % 0.1 (0.1-1.2) % Absolute Granulocytes 5.85 (1.56-6.13) x10^3/uL Basophils # 0.01 (0.01-0.08) x10^3/uL Sodium (135-145) mmol/L Potassium (3.5-5.1) mmol/L Chloride (98-107) mmol/L Carbon Dioxide (22-30) mmol/L Anion Gap (5-15) MEQ/L BUN (7-17) mg/dL Creatinine (0.52-1.04) mg/dL Estimated GFR ML/MIN Glucose (74-106) mg/dL Calcium (8.4-10.2) mg/dL Total Bilirubin (0.2-1.3) mg/dL AST (14-36) U/L ALT (0-35) U/L Alkaline Phosphatase (38-126) U/L Troponin I (0.000-0.033) ng/mL Serum Total Protein (6.3-8.2) g/dL Albumin (3.5-5.0) g/dL Amylase (30-110) U/L Lipase (23-300) U/L Serum HCG, Qual (NEGATIVE) Urine Color Yellow (Yellow) Urine Appearance Clear (Clear) Urine pH 6.5 (4.6-8.0) Ur Specific [place] <=1.005 (1.005-1.030) Urine Protein Negative (Negative) Urine Glucose (UA) Negative (Negative) mg/dL Urine Ketones Negative (Negative) Urine Blood Negative (Negative) Urine Nitrite Negative (Negative) Urine Bilirubin Negative (Negative) Urine Urobilinogen 0.2 (0.2) mg/dL Ur Leukocyte Esterase Moderate A (Negative) U Hyaline Cast (Auto) NONE SEEN (0-2) /LPF Urine Microscopic RBC 0-2 (0-5) /HPF Urine Microscopic WBC 11-20 A (0-5) /HPF Ur Epithelial Cells Few (None Seen) /HPF Urine Bacteria Few A (None Seen) /HPF Urine Culture Reflexed YES (NO) - Progress Progress: improved, pain not gone completely Progress Note: 04/15/24 22:23 My medical decision making and the assignment of moderate complexity to this patient's medical issue today is based on review of the patient's past medical history, review of the patient's medication list, reviewed patient drug allergy list, history present and physical findings on examination. The workup in this patient includes CBC, CMP, amylase, lipase, urinalysis, twelve-lead EKG, troponin level. Differential diagnosis includes but is not limited to cholelithiasis, cholecystitis, pancreatitis, urinary tract infection, pyelonephritis Counseled pt/family regarding: lab results, diagnosis, need for follow-up Medical Desision Making - Independent Historian Additional History obtained from: Spouse - Diagnostic Testing Diagnostic test were ordered, analyzed, and reviewed by me: Yes - Risk of complications The pt has a mod risk of morbidity or mortality based on: Need for prescription drug management - Departure Departure Disposition: Home Clinical Impression: Urinary tract infection during , Right upper quadrant abdominal pain Condition: Stable Critical Care Time: No Referrals: DENISA LY NP [Primary Care Provider] - Follow up/PCP as directed Additional Instructions: Drink plenty of clear liquids. Avoid fatty greasy spicy foods. Take your antibiotics as prescribed. Keep your appointment for your gallbladder ultrasound. Call your primary care provider tomorrow, 04/16/2024, to make arrangement for follow-up appointment and to be seen in the next 3 to 5 days.
[2024-04-15] MEDS ORDERED: PROTONIX 40 MG IV IV ONE (20:35)
[2024-04-15] MEDS ORDERED: Zofran 4 MG/2 ML VIAL ONE (20:35)
[2024-04-15] MEDS: PROTONIX 40 MG IV IV ONE (20:47)
[2024-04-15] MEDS: Zofran 4 MG/2 ML VIAL IV ONE (20:54)
[2024-04-15 21:05] LABS: Absolute Neutrophil Ct (ANC) 5.85 x10^3/uL (1.56-6.13); BASOPHIL % 0.1 % (0.1-1.2); Basophil (Absolute #) 0.01 x10^3/uL (0.01-0.08); Eosinophil % 0.5 % (0.7-5.8); Eosinophil (Absolute #) 0.04 x10^3/uL (0.04-0.36); Hematocrit 29.6 % (34.1-44.9); Hemoglobin 9.5 g/dL (11.2-15.7); IMMATURE GRAN # 0.02 x10^3u/L (0.001-0.031); IMMATURE GRAN % 0.2 % (0.001-0.429); Lymphocyte (Absolute #) 1.59 x10^3/uL (1.18-3.74); Lymphocytes % 19.9 % (19.3-51.7); Mean Cell Volume 78.9 fL (79.4-94.8); Mean Corpuscular Hemoglobin 25.3 pg (25.6-32.2); Mean Corpuscular Hgb Concent. 32.1 g/dL (32.2-35.5); Mean Platelet Volume 10.8 fL (9.4-12.3); Monocytes % 6.2 % (4.7-12.5); Neutrophil % 73.1 % (34.0-71.1); Platelet Count 239 x10^3/uL (182-369); Red Blood Count 3.75 x10^6/uL (3.93-5.22); Red Cell Distribution Width 15.9 % (11.7-14.4)
[2024-04-15 21:14] LABS: HCG SERUM TEST POSITIVE (NEGATIVE)
[2024-04-15 21:17] LABS: Appearance Clear (Clear); Bacteria Few /HPF (None Seen); Bilirubin Negative (Negative); Blood Negative (Negative); Epithelial Cells Few /HPF (None Seen); Glucose, Urine Negative (Negative); Hyaline Casts NONE SEEN /LPF (0-2); Ketones Negative (Negative); Leukocyte Esterase Moderate (Negative); Nitrite Negative (Negative); Ph 6.5 (4.6-8.0); Protein,Urine Dip Negative (Negative); RBC 0-2 /HPF (0-5); Specific Gravity <=1.005 (1.005-1.030); Urobilinogen 0.2 mg/dL (0.2)
[2024-04-15 21:20] LABS: ALBUMIN 3.9 g/dL (3.5-5.0); ANION GAP 11.1 MEQ/L (5-15); BILIRUBIN,TOTAL 0.4 mg/dL (0.2-1.3); Calcium 9.2 mg/dL (8.4-10.2); Creatinine 1 0.38 mg/dL (0.52-1.04); EST GLOMERULAR FILTRATION RATE 142.5 ML/MIN; Potassium 3.4 mmol/L (3.5-5.1); Total Protein 7.1 g/dL (6.3-8.2)
[2024-04-15] MEDS ORDERED: KEFLEX 500 MG ONE (22:18)
[2024-04-15] MEDS: KEFLEX 500 MG PO ONE (22:20)
[2024-04-15 22:44] VITALS: BP 120/81; PULSE 91; RESP 19; O2SAT 97
== END 2024-04-15 22:51 | disposition home or self-care (01) ==
LOC: ED 19:30
DX: O23.42 Unspecified infection of urinary tract in pregnancy, second trimester (principal); N39.0 Urinary tract infection, site not specified; R10.11 Right upper quadrant pain; O21.9 Vomiting of pregnancy, unspecified; Z3A.25 25 weeks gestation of pregnancy
CPT/HCPCS: 36415; 80053; 81001; 82150; 83690; 84484; 84703; 85025; 87086; 93005; 96374; 99284; J2405; A9270-GY

== ENCOUNTER 2024-05-23 14:32 | Observation (INO) | payer OTHER ==
[2024-05-23 15:23] LABS: Appearance Clear (Clear); Bacteria None Seen /HPF (None Seen); Bilirubin Negative (Negative); Blood Negative (Negative); Epithelial Cells Rare /HPF (None Seen); Glucose, Urine Negative (Negative); Hyaline Casts NONE SEEN /LPF (0-2); Ketones Trace (Negative); Leukocyte Esterase Small (Negative); Nitrite Negative (Negative); Ph 7.5 (4.6-8.0); Protein,Urine Dip Negative (Negative); RBC 0-2 /HPF (0-5); Specific Gravity 1.015 (1.005-1.030); Urobilinogen 0.2 mg/dL (0.2)
[2024-05-23 15:38] LABS: Amphetamine,Urine NEGATIVE (NEGATIVE); Barbiturate,Urine NEGATIVE (NEGATIVE); Benzodiazepine,Urine NEGATIVE (NEGATIVE); Cocaine,Urine NEGATIVE (NEGATIVE); Methadone,Urine NEGATIVE (NEGATIVE); Opiate,Urine NEGATIVE (NEGATIVE); PCP,Urine NEGATIVE (NEGATIVE); THC,Urine NEGATIVE (NEGATIVE)
== END 2024-05-23 16:45 | disposition home or self-care (01) ==
LOC: OB 14:32
PROVIDERS: ADMIT Obstetrics & Gynecology; ATTEND Obstetrics & Gynecology
DX: Z34.83 Encounter for supervision of other normal pregnancy, third trimester (principal); Z3A.30 30 weeks gestation of pregnancy
CPT/HCPCS: 80307; 81001; G0378; G0379

== ENCOUNTER 2024-06-01 12:33 | Observation (INO) | payer OTHER ==
[2024-06-01 13:53] VITALS: BP 133/83; PULSE 101; RESP 14; TEMP 98
[2024-06-01 14:28] LABS: Appearance Clear (Clear); Bacteria None Seen /HPF (None Seen); Bilirubin Small (Negative); Blood Negative (Negative); Epithelial Cells Rare /HPF (None Seen); Glucose, Urine Negative (Negative); Hyaline Casts NONE SEEN /LPF (0-2); Ketones 15 (Negative); Leukocyte Esterase Small (Negative); Nitrite Negative (Negative); Ph 7.5 (4.6-8.0); Protein,Urine Dip Trace (Negative); RBC 0-2 /HPF (0-5); WBC 0-2 /HPF (0-5)
== END 2024-06-01 15:30 | disposition home or self-care (01) ==
LOC: OB 12:33
PROVIDERS: ADMIT Obstetrics & Gynecology; ATTEND Obstetrics & Gynecology
DX: Z34.83 Encounter for supervision of other normal pregnancy, third trimester (principal); Z3A.31 31 weeks gestation of pregnancy
CPT/HCPCS: 81001; G0378; G0379

== ENCOUNTER 2024-06-10 21:55 | Observation (INO) | payer OTHER ==
[2024-06-10 22:27] LABS: Absolute Neutrophil Ct (ANC) 4.88 x10^3/uL (1.56-6.13); BASOPHIL % 0.1 % (0.1-1.2); Basophil (Absolute #) 0.01 x10^3/uL (0.01-0.08); Eosinophil % 0.6 % (0.7-5.8); Eosinophil (Absolute #) 0.04 x10^3/uL (0.04-0.36); Hematocrit 28.1 % (34.1-44.9); Hemoglobin 8.9 g/dL (11.2-15.7); IMMATURE GRAN # 0.03 x10^3u/L (0.001-0.031); IMMATURE GRAN % 0.4 % (0.001-0.429); Lymphocyte (Absolute #) 1.36 x10^3/uL (1.18-3.74); Lymphocytes % 19.9 % (19.3-51.7); Mean Cell Volume 76.8 fL (79.4-94.8); Mean Corpuscular Hemoglobin 24.3 pg (25.6-32.2); Mean Corpuscular Hgb Concent. 31.7 g/dL (32.2-35.5); Mean Platelet Volume 10.2 fL (9.4-12.3); Monocyte (Absolute #) 0.51 x10^3/uL (0.24-0.86); Monocytes % 7.5 % (4.7-12.5); Neutrophil % 71.5 % (34.0-71.1); Platelet Count 220 x10^3/uL (182-369); Red Blood Count 3.66 x10^6/uL (3.93-5.22); Red Cell Distribution Width 16.6 % (11.7-14.4); White Blood Count 6.8 x10^3/uL (3.98-10.04)
[2024-06-10] MEDS: TYLENOL EXTRA STRENGTH 500 MG PO PRN (22:59)
[2024-06-10 23:04] LABS: ABO TYPING A; Antibody Screen NEGATIVE (NEGATIVE); RH TYPING POSITIVE
[2024-06-11 02:13] LABS: Amphetamine,Urine NEGATIVE (NEGATIVE); Barbiturate,Urine NEGATIVE (NEGATIVE); Benzodiazepine,Urine NEGATIVE (NEGATIVE); Cocaine,Urine NEGATIVE (NEGATIVE); Methadone,Urine NEGATIVE (NEGATIVE); Opiate,Urine NEGATIVE (NEGATIVE); PCP,Urine NEGATIVE (NEGATIVE); THC,Urine NEGATIVE (NEGATIVE)
[2024-06-11] MEDS: Lactated Ringers 1,000 ML IV ONE (08:30)
--- NOTE | 2024-06-11 10:40 | XRAY ---
Indication: Abdominal trauma. Two-dimensional OB ultrasound performed. Comparison: June 06, 2024. Again single intrauterine in cephalic presentation. heart rate 140 BPM. Umbilical cord now seen around neck. Predominantly posterior placenta without abnormal retroplacental fluid. BPD measures 8.38 cm corresponding to 33 weeks 5 days. HC measures 29.98 cm corresponding to 33 weeks 2 days. AC measures 29.25 cm corresponding to 33 weeks 2 days. FL measures 6.35 cm corresponding to 32 weeks 6 days. Estimated weight 4 lbs. 11 oz., +/-11 ounce. Approximately 50 percentile. CHING is 11.2. Impression: Again single viable intrauterine with mean gestational age 33 weeks 2 days. Normal progression of . Mean gestational age concordant with first sonogram March 12, 2024. New finding for nuchal cord.
[2024-06-11 11:29] VITALS: BP 120/72; PULSE 91; RESP 18; TEMP 97.9; O2SAT 97
== END 2024-06-11 10:52 | disposition home or self-care (01) ==
LOC: OB 21:55
PROVIDERS: ADMIT Obstetrics & Gynecology; ATTEND Obstetrics & Gynecology
DX: Z34.83 Encounter for supervision of other normal pregnancy, third trimester (principal); Z3A.32 32 weeks gestation of pregnancy
CPT/HCPCS: 36415; 76816; 80307; 85025; 86850; 86900; 86901; G0378; G0379; A9270-GY

== ENCOUNTER 2024-07-06 21:01 | Observation (INO) | payer OTHER ==
[2024-07-06 21:37] LABS: AMNISURE TEST RESULTS NEGATIVE (NEGATIVE)
[2024-07-06 21:45] LABS: Amphetamine,Urine NEGATIVE (NEGATIVE); Barbiturate,Urine NEGATIVE (NEGATIVE); Benzodiazepine,Urine NEGATIVE (NEGATIVE); Cocaine,Urine NEGATIVE (NEGATIVE); Methadone,Urine NEGATIVE (NEGATIVE); Opiate,Urine NEGATIVE (NEGATIVE); PCP,Urine NEGATIVE (NEGATIVE); THC,Urine NEGATIVE (NEGATIVE)
[2024-07-06] MEDS: Lactated Ringers 1,000 ML IV ONE (22:30)
[2024-07-06] MEDS: Lactated Ringers 1,000 ML IV SCH (23:41)
[2024-07-07 00:56] LABS: Appearance Clear (Clear); Bacteria None Seen /HPF (None Seen); Bilirubin Negative (Negative); Blood Negative (Negative); Epithelial Cells None Seen /HPF (None Seen); Glucose, Urine Negative (Negative); Hyaline Casts NONE SEEN /LPF (0-2); Ketones 80 (Negative); Leukocyte Esterase Small (Negative); Nitrite Negative (Negative); Ph 6.5 (4.6-8.0); Protein,Urine Dip Negative (Negative); RBC 0-2 /HPF (0-5); Specific Gravity 1.015 (1.005-1.030); Urobilinogen 0.2 mg/dL (0.2)
[2024-07-07 01:54] VITALS: TEMP 98.2
[2024-07-07] MEDS: PROCARDIA 10 MG PO ONE (07:14)
[2024-07-07 07:47] VITALS: RESP 20
[2024-07-07 10:59] VITALS: BP 129/77; PULSE 107; O2SAT 100
== END 2024-07-07 10:50 | disposition home or self-care (01) ==
LOC: OB 21:01
PROVIDERS: ADMIT Obstetrics & Gynecology; ATTEND Obstetrics & Gynecology
DX: Z34.83 Encounter for supervision of other normal pregnancy, third trimester (principal); Z3A.36 36 weeks gestation of pregnancy
CPT/HCPCS: 80307; 81001; 84112; G0378; G0379; A9270-GY

== ENCOUNTER 2024-07-24 01:08 | Inpatient (IN) | payer OTHER ==
[2024-07-24] MEDS ORDERED: TYLENOL EXTRA STRENGTH 500 MG PO PRN ×2 (05:00→08:00)
[2024-07-24] MEDS ORDERED: Zofran 4 MG/2 ML VIAL IV PRN (05:00)
[2024-07-24] MEDS: Lactated Ringers 1,000 ML IV SCH (05:10)
[2024-07-24 05:27] LABS: Hematocrit 27.1 % (34.1-44.9); Hemoglobin 8.2 g/dL (11.2-15.7); Mean Cell Volume 74.9 fL (79.4-94.8); Mean Corpuscular Hemoglobin 22.7 pg (25.6-32.2); Mean Corpuscular Hgb Concent. 30.3 g/dL (32.2-35.5); Mean Platelet Volume 10.6 fL (9.4-12.3); Platelet Count 197 x10^3/uL (182-369); Red Blood Count 3.62 x10^6/uL (3.93-5.22); Red Cell Distribution Width 17.5 % (11.7-14.4); White Blood Count 6.8 x10^3/uL (3.98-10.04)
[2024-07-24 05:32] LABS: Appearance Clear (Clear); Bacteria None Seen /HPF (None Seen); Bilirubin Negative (Negative); Blood Negative (Negative); Epithelial Cells Rare /HPF (None Seen); Glucose, Urine Negative (Negative); Hyaline Casts NONE SEEN /LPF (0-2); Ketones Negative (Negative); Leukocyte Esterase Large (Negative); Nitrite Negative (Negative); Protein,Urine Dip Negative (Negative); RBC 0-2 /HPF (0-5); Urobilinogen 0.2 mg/dL (0.2)
[2024-07-24 05:42] LABS: INR 0.86 (0.8-3.0); PROTIME 9.5 SECONDS (9.4-12.5); PTT 23.7 SECONDS (25.1-36.5)
[2024-07-24 06:14] LABS: ABO TYPING A; Antibody Screen NEGATIVE (NEGATIVE); RH TYPING POSITIVE
[2024-07-24 06:36] LABS: Amphetamine,Urine NEGATIVE (NEGATIVE); Barbiturate,Urine NEGATIVE (NEGATIVE); Cocaine,Urine NEGATIVE (NEGATIVE); Methadone,Urine NEGATIVE (NEGATIVE); Opiate,Urine NEGATIVE (NEGATIVE); PCP,Urine NEGATIVE (NEGATIVE); THC,Urine NEGATIVE (NEGATIVE)
[2024-07-24] MEDS: SOD CITRATE-CITRIC ACID SOLN PO SCH (06:36)
[2024-07-24] MEDS: Reglan 10 MG/2 ML IV SCH (06:36)
[2024-07-24] MEDS: Pepcid 20 MG VIAL IV SCH (06:37)
[2024-07-24 06:40] LABS: Benzodiazepine,Urine NEGATIVE (NEGATIVE)
[2024-07-24] MEDS ORDERED: PHENYLEPHRINE HCL ONE (07:54)
[2024-07-24] MEDS ORDERED: Zofran 4 MG/2 ML VIAL ONE (07:54)
[2024-07-24] MEDS ORDERED: Pitocin 10 UNITS/ML ONE (07:54)
[2024-07-24] MEDS ORDERED: TORAdol 30 mg Injection ONE (07:54)
[2024-07-24] MEDS ORDERED: Narcan 0.4 MG/ML IV PRN (08:00)
[2024-07-24] MEDS ORDERED: HOLD NARCOTIC ANALGESICS AND SEDATIVES X24 HR MC PRN (08:00)
[2024-07-24] MEDS ORDERED: DEMEROL 50 MG IV PRN (08:00)
[2024-07-24] MEDS ORDERED: MORPHINE SULFATE 2 MG INJ IV PRN (08:00)
[2024-07-24] MEDS ORDERED: BENADRYL 50 MG/ML IV PRN (08:00)
[2024-07-24] MEDS ORDERED: Dulcolax 10 MG SUPP PR PRN (08:00)
[2024-07-24] MEDS ORDERED: Sodium Chloride 0.9% 10 ML FLUSH Syringe IJ PRN (08:00)
[2024-07-24] MEDS ORDERED: Nubain 10 MG/ML IV PRN (08:00)
[2024-07-24] MEDS ORDERED: LANSINOH 40 GM TOP PRN (08:00)
[2024-07-24] MEDS ORDERED: CLARITIN 10 MG PO PRN (08:00)
[2024-07-24] MEDS ORDERED: dexAMETHasone sodium phosphate ONE (08:12)
[2024-07-24] MEDS: CEFAZOLIN 2 GM/100 ML NaCl 2 GM/100 ML IVPB IV SCH ×2 (08:20→16:04)
[2024-07-24] MEDS ORDERED: Versed 2 MG/2 ML Injection ONE (08:44)
[2024-07-24] MEDS ORDERED: Sodium Chloride 0.9% 1000 ML 1,000 ML ONE (08:44)
[2024-07-24] MEDS ORDERED: FERREX 150 PO SCH (10:00)
[2024-07-24] MEDS: TORAdol 30 mg Injection IV PRN (10:06)
[2024-07-24 14:08] LABS: Appearance Clear (Clear); Bacteria None Seen /HPF (None Seen); Bilirubin Negative (Negative); Blood Negative (Negative); Epithelial Cells None Seen /HPF (None Seen); Glucose, Urine Negative (Negative); Hyaline Casts NONE SEEN /LPF (0-2); Ketones Negative (Negative); Leukocyte Esterase Negative (Negative); Nitrite Negative (Negative); Protein,Urine Dip Negative (Negative); RBC 0-2 /HPF (0-5); Specific Gravity 1.015 (1.005-1.030); Urobilinogen 0.2 mg/dL (0.2); WBC 0-2 /HPF (0-5)
[2024-07-24] MEDS: Dextrose 5%-Lr IV Solution 1000 ML 1,000 ML IV SCH (16:02)
[2024-07-24] MEDS: PERCOCET TABLET 5/325MG PO PRN (19:17)
[2024-07-24] MEDS: Docusate Sodium 100 MG PO SCH (21:57)
[2024-07-24] MEDS: Mylicon 80MG PO PRN (23:13)
[2024-07-25 05:35] LABS: Absolute Neutrophil Ct (ANC) 6.46 x10^3/uL (1.56-6.13); Basophil (Absolute #) 0 x10^3/uL (0.01-0.08); Eosinophil % 0.2 % (0.7-5.8); Eosinophil (Absolute #) 0.02 x10^3/uL (0.04-0.36); Hematocrit 25.3 % (34.1-44.9); Hemoglobin 7.4 g/dL (11.2-15.7); IMMATURE GRAN # 0.05 x10^3u/L (0.001-0.031); IMMATURE GRAN % 0.6 % (0.001-0.429); Lymphocytes % 21.1 % (19.3-51.7); Mean Cell Volume 77.1 fL (79.4-94.8); Mean Corpuscular Hemoglobin 22.6 pg (25.6-32.2); Mean Corpuscular Hgb Concent. 29.2 g/dL (32.2-35.5); Mean Platelet Volume 11.5 fL (9.4-12.3); Monocyte (Absolute #) 0.59 x10^3/uL (0.24-0.86); Monocytes % 6.5 % (4.7-12.5); Neutrophil % 71.6 % (34.0-71.1); Platelet Count 223 x10^3/uL (182-369); Red Blood Count 3.28 x10^6/uL (3.93-5.22); Red Cell Distribution Width 17.3 % (11.7-14.4)
[2024-07-25] MEDS ORDERED: Venofer 100 MG/5 ML IV ONE (08:14)
--- NOTE | 2024-07-25 08:16 | PCM.NOTE ---
Date and Time: 07/25/24814 Subjective Assessment: No events overnight. She has been out of bed, voiding, passing gas. Lochia minimal. Pain well controlled. No edema. Hgb today 7.4. Objective Exam General Appearance: no apparent distress, alert Neurologic Exam: alert, oriented x 3, cooperative, normal mood/affect, nml cerebellar function, sensation nml, No motor deficits Skin Exam: normal color, warm, dry Eye Exam: PERRL, EOMI, eyes nml inspection Neck Exam: normal inspection, non-tender, supple, full range of motion Respiratory Exam: normal breath sounds, lungs clear, No respiratory distress Cardiovascular Exam: regular rate/rhythm, normal heart sounds Gastrointestinal/Abdomen Exam: soft, other (Incision dressing dry), No tenderne ss, No mass Uterus: Normal (2-3 cm below umbilicus) Extremity Exam: normal inspection, normal range of motion Back Exam: normal inspection, normal range of motion, No CVA tenderness, No vertebral tenderness Pelvic Exam: deferred Rectal Exam: deferred Objective Data Vital Signs: Vital Signs - 24 hr Temp Pulse Resp BP Pulse Ox 07/25/24 04:38 97.5 F 97 H 20 123/62 98 07/25/24 00:00 97.2 F 76 16 114/61 98 07/24/24 21:24 98 07/24/24 18:00 99 07/24/24 17:45 77 18 126/67 97 07/24/24 17:00 99 07/24/24 16:00 99 07/24/24 15:00 99 07/24/24 14:15 98.1 F 96 H 18 133/95 99 07/24/24 14:00 99 07/24/24 13:15 98.1 F 83 18 138/93 98 07/24/24 13:00 99 07/24/24 12:15 98.1 F 77 18 126/74 98 07/24/24 12:00 77 18 126/74 98 07/24/24 11:15 97.4 F 78 18 139/64 100 07/24/24 11:00 99 07/24/24 10:45 97.4 F 67 18 117/72 99 07/24/24 10:30 97.4 F 65 18 110/63 99 07/24/24 10:15 97.4 F 72 18 103/63 100 07/24/24 10:00 97.4 F 75 18 96/59 99 07/24/24 09:45 97.4 F 72 18 96/53 100 07/24/24 09:00 100 Pain Assessment - Last Documented Pain Intensity 6 Pain Scale Used 0-10 Pain Scale Intake and Output: Intake & Output 07/22/24 07/23/24 07/24/24 07/25/24 11:59 11:59 11:59 11:59 Intake Total 3900 Output Total 4300 Balance -400 Weight 114.759 kg Lab Results: Lab Results-Last 24 Hours 07/24/24 07/25/24 Range/Units 08:12 04:29 WBC 9.0 (3.98-10.04) x10^3/uL RBC 3.28 L (3.93-5.22) x10^6/uL Hgb 7.4 L (11.2-15.7) g/dL Hct 25.3 L (34.1-44.9) % MCV 77.1 L (79.4-94.8) fL MCH 22.6 L (25.6-32.2) pg MCHC 29.2 L (32.2-35.5) g/dL RDW 17.3 H (11.7-14.4) % Plt Count 223 (182-369) x10^3/uL MPV 11.5 (9.4-12.3) fL Gran % 71.6 H (34.0-71.1) % Immature Gran % (Auto) 0.6 H (0.001-0.429) % Nucleat RBC Rel Count 0.0 (0.00-0.2) % Eos # (Auto) 0.02 L (0.04-0.36) x10^3/uL Immature Gran # (Auto) 0.05 H (0.001-0.031) x10^3u/L Absolute Lymphs (auto) 1.90 (1.18-3.74) x10^3/uL Absolute Monos (auto) 0.59 (0.24-0.86) x10^3/uL Absolute Nucleated RBC 0.00 (0.00-0.012) x10^3u/L Lymphocytes % 21.1 (19.3-51.7) % Monocytes % 6.5 (4.7-12.5) % Eosinophils % 0.2 L (0.7-5.8) % Basophils % 0.0 L (0.1-1.2) % Absolute Granulocytes 6.46 H (1.56-6.13) x10^3/uL Basophils # 0 L (0.01-0.08) x10^3/uL Urine Color Yellow (Yellow) Urine Appearance Clear (Clear) Urine pH 7.0 (4.6-8.0) Ur Specific [place] 1.015 (1.005-1.030) Urine Protein Negative (Negative) Urine Glucose (UA) Negative (Negative) mg/dL Urine Ketones Negative (Negative) Urine Blood Negative (Negative) Urine Nitrite Negative (Negative) Urine Bilirubin Negative (Negative) Urine Urobilinogen 0.2 (0.2) mg/dL Ur Leukocyte Esterase Negative (Negative) U Hyaline Cast (Auto) NONE SEEN (0-2) /LPF Urine Microscopic RBC 0-2 (0-5) /HPF Urine Microscopic WBC 0-2 (0-5) /HPF Ur Epithelial Cells None Seen (None Seen) /HPF Urine Bacteria None Seen (None Seen) /HPF Multi-Disciplinary Progress Notes: Multi-Disciplinary Progress Notes 07/24/24 10:44 Respiratory Note by Itzel Renner Baby born via . Baby crying upon delivery. Baby brought to warmer and dried and stimulated. No RT interventions needed at this time. Initialized on 07/24/24 10:44 - END OF NOTE Assessment/Plan (1) delivery delivered Current Visit: Yes Status: Acute Assessment & Plan: POD1 -continue routine postop/ care -Will give IV iron for anemia as patient does not tolerate oral iron Code(s): O82 - ENCOUNTER FOR DELIVERY WITHOUT INDICATION (2) Anemia affecting Current Visit: Yes Status: Acute Code(s): O99.019 - ANEMIA COMPLICATING , UNSPECIFIED TRIMESTER
[2024-07-25] MEDS: Venofer 100 MG/5 ML*** 200 MG in Sodium Chloride 0.9% 100 ML IV SCH (08:31)
[2024-07-25] MEDS: FEOSOL 325 MG PO SCH (08:58)
[2024-07-25] MEDS: Adacel Vial IM ONE (08:59)
[2024-07-25] MEDS: ENOXAPARIN SODIUM SQ ONE (08:59)
[2024-07-25 12:32] LABS: RPR Non Reactive (Non Reactive)
[2024-07-25] MEDS: CORTISONE 1% CREAM TP PRN (14:16)
[2024-07-25] MEDS: MOTRIN 400 MG PO PRN (14:43)
[2024-07-25] MEDS: BENADRYL 25 MG CAPSULE PO PRN (14:47)
[2024-07-25] MEDS: NORCO 5/325 MG PO PRN (17:09)
[2024-07-26 04:50] LABS: Absolute Neutrophil Ct (ANC) 5.61 x10^3/uL (1.56-6.13); BASOPHIL % 0.3 % (0.1-1.2); Basophil (Absolute #) 0.02 x10^3/uL (0.01-0.08); Eosinophil % 0.9 % (0.7-5.8); Eosinophil (Absolute #) 0.07 x10^3/uL (0.04-0.36); Hematocrit 25.5 % (34.1-44.9); Hemoglobin 7.6 g/dL (11.2-15.7); IMMATURE GRAN # 0.05 x10^3u/L (0.001-0.031); IMMATURE GRAN % 0.6 % (0.001-0.429); Lymphocyte (Absolute #) 1.69 x10^3/uL (1.18-3.74); Lymphocytes % 21.5 % (19.3-51.7); Mean Cell Volume 77.5 fL (79.4-94.8); Mean Corpuscular Hemoglobin 23.1 pg (25.6-32.2); Mean Corpuscular Hgb Concent. 29.8 g/dL (32.2-35.5); Mean Platelet Volume 10.8 fL (9.4-12.3); Monocyte (Absolute #) 0.43 x10^3/uL (0.24-0.86); Monocytes % 5.5 % (4.7-12.5); Neutrophil % 71.2 % (34.0-71.1); Platelet Count 227 x10^3/uL (182-369); Red Blood Count 3.29 x10^6/uL (3.93-5.22); White Blood Count 7.9 x10^3/uL (3.98-10.04)
[2024-07-26 08:21] VITALS: BP 119/59; PULSE 89; RESP 16; TEMP 97.7; O2SAT 97
--- NOTE | 2024-07-26 10:37 | PCM.DS ---
Discharge Summary Date of Admission: 07/24/24 04:30 Date of Discharge: 07/26/24 Admitting Physician: NESSA CHOUDHURY DO Consults: Consults on Case 07/24/24 06:07 Notify Anesthesia Provider PRN 07/24/24 06:14 Notify Physician ROUTINE 07/24/24 15:02 Navigation ONCE Primary Care Provider: DENISA LY Allergies Allergies No Known Drug Allergies Allergy (Verified 02/26/24 12:03) OB Hospital Summary - Hospital Course Reason for Admission: Section Delivery Method: Section Episiotomy Description: None Complications: None Baby: Female - Vitals & Intake/Output Vital Signs: Vital Signs Temperature 97.7 F 07/26/24 08:00 Pulse Rate 89 07/26/24 08:00 Respiratory Rate 16 07/26/24 08:00 Blood Pressure 119/59 07/26/24 08:00 O2 Sat by Pulse Oximetry 97 07/26/24 08:00 Intake & Output: Intake & Output 07/23/24 07/24/24 07/25/24 07/26/24 11:59 11:59 11:59 11:59 Intake Total 3900 500 Output Total 4300 Balance -400 500 Weight 114.759 kg - Lab Result Diagrams: 07/26/24 04:30 Lab Results-Last 24 Hrs: Lab Results-Last 24 Hours 07/24/24 07/26/24 Range/Units 05:15 04:30 WBC 7.9 (3.98-10.04) x10^3/uL RBC 3.29 L (3.93-5.22) x10^6/uL Hgb 7.6 L (11.2-15.7) g/dL Hct 25.5 L (34.1-44.9) % MCV 77.5 L (79.4-94.8) fL MCH 23.1 L (25.6-32.2) pg MCHC 29.8 L (32.2-35.5) g/dL RDW 18.0 H (11.7-14.4) % Plt Count 227 (182-369) x10^3/uL MPV 10.8 (9.4-12.3) fL Gran % 71.2 H (34.0-71.1) % Immature Gran % (Auto) 0.6 H (0.001-0.429) % Nucleat RBC Rel Count 0.0 (0.00-0.2) % Eos # (Auto) 0.07 (0.04-0.36) x10^3/uL Immature Gran # (Auto) 0.05 H (0.001-0.031) x10^3u/L Absolute Lymphs (auto) 1.69 (1.18-3.74) x10^3/uL Absolute Monos (auto) 0.43 (0.24-0.86) x10^3/uL Absolute Nucleated RBC 0.00 (0.00-0.012) x10^3u/L Lymphocytes % 21.5 (19.3-51.7) % Monocytes % 5.5 (4.7-12.5) % Eosinophils % 0.9 (0.7-5.8) % Basophils % 0.3 (0.1-1.2) % Absolute Granulocytes 5.61 (1.56-6.13) x10^3/uL Basophils # 0.02 (0.01-0.08) x10^3/uL RPR Non Reactive (Non Reactive) Micro Results-Entire Visit: Microbiology 07/24/24 08:12 Urine Culture - Preliminary Catherized NO GROWTH TO DATE 07/24/24 05:00 Urine Culture - Final Urine, Void NO GROWTH - Procedures and Test Procedures and Tests throughout Hospitalization: Therapy Orders & Screens 07/24/24 10:43 Standby STAT Comment: Diagnosis: IUP OB Discharge Exam General Appearance: no apparent distress Neurologic Exam: alert, cooperative Skin Exam: normal color Eye Exam: PERRL, EOMI Ears, Nose, Throat Exam: moist mucous membranes Neck Exam: normal inspection, supple Respiratory Exam: normal breath sounds, lungs clear Cardiovascular Exam: regular rate/rhythm, normal heart sounds Gastrointestinal/Abdomen Exam: soft, No tenderness, No distention Extremity Exam: normal inspection, No tenderness - Discharge Disposition: Home, Self-Care Condition: Stable Prescriptions: New Docusate Sodium 100 mg [Docusate Sodium 100 MG] 100 mg PO DAILY #30 cap Ferrous Sulfate 325 mg [Feosol 325 mg] 325 mg PO DAILY #30 tablet Discontinued Ferrous Sulfate 325 mg [Feosol 325 mg] 325 mg PO BID Instructions: - Discharge instructions Additional Instructions: ordered for you to take iron one tab by mouth twice a day for 2 months. Please return to the OB unit at the hospital on MondayJuly 28 for a post follow up for both ramos and Mansi. You may always Dr. Choudhury's office with any questions during normal business hours in addition to the OB unit for questions or concerns. In the event of an emergency, please call 911 or visit your nearest emergency room. Follow up with: DENISA LY NP [Primary Care Provider] - NESSA CHOUDHURY DO [ACTIVE STAFF] - 07/31/24 1:00 pm Forms: OB Discharge Instructions
--- NOTE | 2024-07-26 13:12 | OP ---
SURGERY DATE/TIME: 07/24/2024 [id number] PREOPERATIVE DIAGNOSIS: Intrauterine at 39 weeks and 1 day gestation with previous section, declined trial of labor with suspected nuchal cord x1. POSTOPERATIVE DIAGNOSIS: Intrauterine at 39 weeks and 1 day gestation with previous section, declined trial of labor with suspected nuchal cord x1. PROCEDURE: Repeat section with low flap transverse uterine incision and Pfannenstiel skin incision. SURGEON: Solitario Choudhury DO [employer] SURGEON: Maureen Falcon IV, MD ANESTHESIA: Spinal. ESTIMATED BLOOD LOSS: 603 mL. COMPLICATIONS: None. FINDINGS: The risks, benefits, indications, and alternatives of the procedure were reviewed with the patient prior to the procedure. Patient understood the risks of infection, bleeding, bowel injury, bladder injury, ureteral injury, pelvic infection, thromboembolic disorder associated to surgery, and desires to have the surgery as a possible means to alleviate her current medical condition. DESCRIPTION OF PROCEDURE AND FINDINGS: At this point, patient was taken to the operating room where her spinal anesthesia was found to be adequate. She was then prepared and draped in a normal sterile fashion in the dorsal supine position with a leftward tilt. A Pfannenstiel skin incision was made with a scalpel and carried through to the underlying layer of the fascia with a Bovie. The fascia was then incised in the midline. The incision extended laterally with the Hickman scissors. The superior aspect of the fascial incision was then grasped between Maddison clamps, elevated, and the underlying rectus muscles were dissected out bluntly. Attention was then turned to the inferior aspect of this incision which in a similar fashion was grasped, tented up with the Maddison clamps, and the rectus muscles were dissected off bluntly. The rectus muscles were then in the midline, the peritoneum identified, tented up, and entered sharply with the Metzenbaum scissors. The peritoneal incision was then extended superiorly and inferiorly with good visualization of the bladder. The bladder blade was inserted, and at this point, an incision was made horizontally along the lower uterine segment and was extended laterally digitally. The bladder blade was then removed, and the infant's head was delivered atraumatically with denuded nuchal cord that was loosely around the neck. The nose and mouth were suctioned with the bulb suction and the cord clamped and cut. The was then handed off to the waiting nurses. The placenta was then removed manually. The uterus was exteriorized and cleared of all clots and debris. The uterine incision was repaired with 1-0 chromic in a running locked fashion. A second layer of the same suture was used to obtain excellent hemostasis. At this point, the uterus was returned to the abdomen, gutters were cleared of all clots. The peritoneum and muscles were closed in an interrupted fashion using 2-0 chromic suture. The fascia was then reapproximated with 0 Vicryl in a running fashion. Subcutaneous layer was closed with 3-0 Vicryl suture, and the skin was closed with absorbable trey called Insorb. The patient tolerated the procedure well. Sponge, lap, needle, and instrument counts were correct x2. The patient was then taken to the recovery room in stable condition. The patient delivered a live baby girl at 8:26 a.m. Apgars were 9 at one minute and 9 at five minutes.
== END 2024-07-26 14:15 | disposition home or self-care (01) | DRG 788 ==
LOC: OB 04:30
PROVIDERS: ADMIT Obstetrics & Gynecology; ATTEND Obstetrics & Gynecology
PROC: 10D00Z1 Extraction of Products of Conception, Low, Open Approach (ICD-10-PCS; principal; 2024-07-24)
DX: O69.81X0 Labor and delivery complicated by cord around neck, without compression, not applicable or unspecified (principal); O66.40 Failed trial of labor, unspecified; O34.219 Maternal care for unspecified type scar from previous cesarean delivery; O99.02 Anemia complicating childbirth; Z3A.39 39 weeks gestation of pregnancy; Z37.0 Single live birth
CPT/HCPCS: 36415; 59514; 76937; 80307; 81001; 85025; 85027; 85610; 85730; 86592; 86850; 86900; 86901; 87086; 90715; 94799; 96372; J0690; J1100; J1650; J1756; J1885; J2250; J2371; J2405; J2590; A9270-GY